=== PATIENT | male | born 1940 | race Caucasian/White ===

== ENCOUNTER 2016-10-04 12:19 | Emergency (ER) | payer MEDICARE, BC ==
[2016-07-25 12:37] VITALS: BMI 22.1
[~2016-10-04 12:19] MED LIST: ADVAIR 250/501 DISK INH; ALENDRONATE SOD70 MG PO; ARAVA10 MG PO; ATROVENT 0.02%2.5 ML UPD; BAYER ASPIRIN325 MG PO; BAYER CHEWABLE81 MG PO; BRILINTA90 MG PO; COUMADIN5 MG PO; FLUTICASONE PRO16 GM NASAL; GLUCOPHAGE500 MG PO; HYDROCODON-ACE1 EAC7 PO; IMODIUM2 MG PO; ISOSORBIDE MONO30 M1 PO; K-DUR20 MEQ PO; LANOXIN125 MCG PO; LEVAQUIN500 MG PO; LIPITOR80 MG PO; LOVENOX60 MG/0.6 SC; METOPROLOL TART25 MG PO; MUCUS RELIEF400 MG PO; NITROSTAT0.4 MG SL; OYSCO 500+D TAB1 TAB PO; PAROXETINE HCL10 MG PO; PEPCID20 MG PO; PLAQUENIL200 MG PO; PREDNISONE10 MG PO; PREDNISONE5 MG PO; SINGULAIR10 MG PO; SPIRIVA18 MCG INH; ULTRAM50 MG PO; VITAMIN D31000 UNIT PO; VITAMIN D3400 UNI1 PO
[2016-10-04 14:35] LABS: BASOPHILS 0.2 % (0.0-2.0); EOSINOPHILS 0 % (0-7); HEMATOCRIT 31.4 % (42.0-54.0); IMMATURE GRANULOCYTES 0.3 % (0-5); LYMPHOCYTES 11.6 % (15-50); MCH 29.5 pg (26.0-34.0); MCHC 31.8 g/dL (31.0-37.0); MCV 92.6 fL (80.0-100.0); MEAN PLATELET VOLUME 10.3 fL (7.4-10.4); NEUTROPHILS 79.9 % (40-80); PLATELET COUNT 188 10x3/uL (130-400); RBC 3.39 10x6/uL (4.20-6.10); WBC 5.8 10x3/uL (4.8-10.8)
[2016-10-04 14:52] LABS: ALBUMIN 2.7 g/dL (3.4-5.0); BILIRUBIN - TOTAL 0.28 mg/dL (0.2-1.3); CARBON DIOXIDE 29.2 mmol/L (21.0-32.0); CREATININE - SERUM 1.2 mg/dL (0.6-1.3); POTASSIUM - SERUM 4.2 mmol/L (3.5-5.1); PROTEIN - SERUM 6.4 g/dL (6.4-8.2)
== END 2016-10-04 16:30 | disposition home or self-care (01) ==
LOC: D.ER 12:19
PROVIDERS: Nurse Practitioner Family
DX: J20.9 Acute bronchitis, unspecified (principal); J06.9 Acute upper respiratory infection, unspecified; J44.1 Chronic obstructive pulmonary disease with (acute) exacerbation; I10 Essential (primary) hypertension; I21.3 ST elevation (STEMI) myocardial infarction of unspecified site; C34.90 Malignant neoplasm of unspecified part of unspecified bronchus or lung; I45.10 Unspecified right bundle-branch block

== ENCOUNTER 2016-10-19 23:19 | Inpatient (IN) | payer MEDICARE, BC ==
[~2016-10-19] VITALS: Ht 182.9 cm; Wt 72.7 kg
--- NOTE | ~2016-10-19 | HEMODYNAMI ---
PATIENT:MADHU ISAAC MEDICAL RECORD: [id number] : 42 LOCATION:[facility] D.2129 ADMISSION DATE: 10/20/16 Generatedon:10/23/20169:22 Patient name: MADHU ISAAC Patient #: [id number] SSN: : 1940 Date of study: 10/23/2016 Page: Of Hemodynamic Procedure Report Patient Data Patient Demographics Procedure consent was obtained First Name: MADHU Gender: Male Last Name: PONCHO : 1940 Middle Initial: ELFEGO Age: 76 year(s) Patient #: [id number] Race: Unknown Additional ID: [id number] Contact details Address: [address] [place] [address] [facility] State: [place] City: [place] Zip code: [address] Admission Admission Data Admission Date: 10/20/2016 Admission Time: 2:14 Room #: D.2129 Procedure Procedure Types Cath Procedure Peripheral Cath Diagnostic Procedure Miscellaneous Procedure Description Procedure Date Procedure Date: 10/23/2016 Procedure Start Time: 8:55 Procedure Staff Name Function Elijah Monzon MD Performing Physician Tamika Buckley RT Scrub Zaina Barfield RN Nurse Leopoldo Herrera RT Monitor Procedure Data Cath Procedure Fluoroscopy Diagnostic fluoroscopy Total fluoroscopy Time: 1.4 time: 1.4 min min Diagnostic fluoroscopy Total fluoroscopy dose: 63 dose: 63 mGy mGy Contrast Material Contrast Material Type Amount (ml) Isovue 300 20 Procedure Medications Medication Administration Route Dosage Fentanyl I.V. 50 mcg Versed I.V. 1 mg Hemodynamics Rest Heart Rate: 38 (bpm) Snapshots Pre Cath Intra NCS Post Cath Vital Signs Time Heart Resp SPO2 NIBP (mmHg) Rhythm Pain Sedation Rate (ipm) (%) Status Level (bpm) 8:42:43 81 23 95 178/99(137) NSR 0 (11) 10(A) , No pain 8:47:07 75 17 94 154/85(127) NSR 0 (11) 10(A) , No pain 8:51:27 71 18 93 155/78(133) NSR 0 (11) 10(A) , No pain 8:55:47 72 12 96 153/82(122) NSR 0 (11) 10(A) , No pain 9:00:07 82 10 94 159/78(132) NSR 0 (11) 10(A) , No pain 9:04:29 75 12 95 153/77(125) NSR 0 (11) 9(A) , No pain 9:08:50 85 16 94 145/74(125) NSR 0 (11) 9(A) , No pain 9:13:06 79 21 98 153/80(127) NSR 0 (11) 10(A) , No pain 9:17:20 85 26 96 139/95(115) NSR 0 (11) 10(A) , No pain 9:21:19 96 No Cuff NSR 0 (11) 10(A) , No pain Medications Time Medication Route Dose Verified Delivered Reason Notes Effectivenes s by by 8:58:20 Fentanyl I.V. 50 Zaina Zaina for mcg Carolyne Carolyne sedation RN RN 8:58:41 Versed I.V. 1 mg Zaina Zaina for Carolyne Carolyne sedation RN survey workers supervisor Log Time Note 8:31:48 Leopoldo Herrera RT (R) (CV) sent for patient. Start room use. 8:31:57 Time tracking: Regular hours 8:32:05 Plan of Care:Hemodynamics will remain stable., Cardiac rhythm will remain stable., Comfort level will be maintained., Respiratory function will remain adequate., Patient/ family verbilizes understanding of procedure., Procedure tolerated without complication., Recovers from procedure without complications.. 8:32:11 Patient received from Combined [employer]ort II to IR Alert and oriented. Tansferred to table in Supine position. 8:32:12 Correct patient and procedure confirmed by team. 8:32:14 Signed procedure consent form obtained from patient. 8:32:14 ECG and BP/O2 sat monitors applied to patient. 8:32:15 Full Disclosure recording started 8:32:16 8:32:21 H&P Date Dictated: 10/23/2016 Within 30 days and on chart.. 8:32:23 Pre-procedure instructions explained to patient. 8:32:24 Pre-op teaching completed and patient verbalized understanding. 8:32:26 Family in waiting room. 8:32:28 Patient NPO since Midnight. 8:32:32 Is the patient allergic to Iodine/contrast media? No. 8:32:35 Is patient on blood thinner?No 8:32:36 Patient diabetic? Yes. 8:32:38 If diabetic: On Metformin? Yes 8:32:43 If on Metformin: Last Dose? 10/22/2016 8:32:45 8:32:46 ----Pre-sedation anethsthesia assessment.---- 8:32:50 Previous problem with sedation/anesthesia? No ? 8:32:51 Snore? Yes 8:32:53 Sleep apnea? No 8:32:55 Deviated septum? No 8:32:57 Opens mouth fully? Yes 8:32:58 Sticks out tongue? Yes 8:33:04 Airway obstruction? No ? 8:33:22 Dentures? Yes ? 8:33:29 Patient pain scale 0/10 no pain. 8:41:06 IV patent on arrival in left forearm with 0.9% NaCl at [facility]. 8:41:07 Sharps counted by scrub and verified by R.N. 8:41:08 Alarms reviewed by R. N. 8:41:11 Right groin area was prepped with chlora-prep and draped in sterile fashion 8:41:16 Use device set IR Diagnostic 8:41:18 Sterile Angiographic Pack opened to sterile field. 8:41:19 Bag Decanter opened to sterile field. 8:41:20 Acist Manifold opened to sterile field. 8:41:21 Acist Syringe opened to sterile field. 8:41:21 Acist Hand Control opened to sterile field. 8:41:33 Vital chart was started 8:41:34 Baseline sample Acquired. 8:41:37 Rhythm: sinus rhythm 8:55:06 Physician arrived 8:55:06 --------ALL STOP TIME OUT------ 8:55:07 Final Timeout: patient, procedure, and site verified with staff and physician. All members of the team are in agreement. 8:55:09 Right groin site verified by team. 8:55:14 Physical assessment completed. ASA score P 3 - A patient with severe systemic disease as per Elijah Monzon MD. 8:55:17 Sedation plan: IV Moderate Sedation Versed, Fentanyl 8:55:36 Procedure started. 8:55:41 Local anesthetic to right femoral vein with Lidocaine 1% by Elijah Monzon MD.INITIAL ACCESS ONLY 8:55:47 Cook BENTSON 145cm guide wire opened to sterile field. 8:55:48 Micropuncture VSI 4FR kit opened to sterile field. 8:55:49 TUBING, CONTRAST INJCTN HI PRES opened to sterile field. 8:58:20 Fentanyl 50 mcg I.V. was administered by Zaina Barfield RN; for sedation; 8:58:41 Versed 1 mg I.V. was administered by Zaina Barfield RN; for sedation; 9:05:35 Bard TRINO Vena Cava Filter opened to sterile field. 9:05:51 Trino Femoral IVC filter was placed below renal veins. 9:08:45 Procedure ended.(Physican Out) 9:10:19 Fluoroscopy time 01.40 minutes. 9:10:26 Flurop Dose total: 63 9:10:26 Fluoroscopy dose: 63 mGy 9:10:33 Contrast amount:Isovue 300 20ml. 9:10:37 Sharps counted by scrub and verified by R.N. 9:10:41 Insertion/operative site no bleeding no hematoma. 9:10:46 Post-op/insertion site Right Femoral vein dressed using a 4 x 4 and Tegaderm. 9:10:50 Post right femoral vein:stable 9:10:56 Post-procedure physical assessment completed. ASA score P 3 - A patient with severe systemic disease as per Elijah Monzon MD. 9:11:00 Post procedure rhythm: sinus rhythm 9:11:02 Post procedure instruction explained to patient.Patient verbalizes understanding. 9:11:03 Procedure and supply charges have been captured, reviewed, submitted and are correct. 9:20:46 Report given to Med II. 9:20:50 Patient transfered to Med II with Bed. 9:22:04 Vital chart was stopped Device Usage Item Name Manufacture Quantity Catalog Hospital Part Current Minima l Lot# / Number Charge Number Stock Stock Serial# Code Sterile Cardinal 1 [id number] 5 Angiographic Health Pack Bag Decanter Microtek 1 [id number] [id number] [id number] 5 Medical Inc. Acist Acist 1 38157 373149 473586 [id number] 5 Manifold Medical Systems Inc Acist Syringe Acist 1 11073 041693 012676 530484 20 Medical Systems Inc Acist Hand Acist 1 87214 024745 595963 751920 5 Control Medical Systems Inc Cook [facility] Cook Medical 1 [id number] 5 [id number] 145cm guide wire Micropuncture VSI VASCULAR 1 [id number] 964681 244978 5 VSI 4FR kit SOLUTIONS TUBING, Merit 1 [id number] 083952 221118 251751 5 CONTRAST Medical INJCTN HI PRES Bard TRINO Bard 1 [id number] [id number] 305617 630791 5 [id number] Vena Cava Filter Signature Audit [place] Stage Time Signature Unsigned Intra-Procedure 10/23/2016 Leopoldo 9:22:01 AM Sh[place] RT (R) (CV) Signatures Monitor : Leopoldo Signature : Javier RT Date : Time : [facility] [address] [place] [address]
[2016-10-20 01:21] LABS: BASOPHILS 0.1 % (0.0-2.0); EOSINOPHILS 0.1 % (0-7); HEMOGLOBIN 11.1 g/dL (13.5-17.5); IMMATURE GRANULOCYTES 0.4 % (0-5); MCH 30.2 pg (26.0-34.0); MCHC 31.7 g/dL (31.0-37.0); MCV 95.1 fL (80.0-100.0); MONOCYTES 5.5 % (2-11); NEUTROPHILS 80.9 % (40-80); PLATELET COUNT 198 10x3/uL (130-400); RBC 3.68 10x6/uL (4.20-6.10); RDW 18.3 % (11.5-14.5); WBC 19.6 10x3/uL (4.8-10.8)
[2016-10-20 01:39] LABS: ALBUMIN 2.7 g/dL (3.4-5.0); ANION GAP 10.7 mmol/L (8-16); BILIRUBIN - TOTAL 0.98 mg/dL (0.2-1.3); CALCIUM 8.4 mg/dL (8.5-10.1); CARBON DIOXIDE 29.4 mmol/L (21.0-32.0); CREATININE - SERUM 1.1 mg/dL (0.6-1.3); POTASSIUM - SERUM 4.1 mmol/L (3.5-5.1); PROTEIN - SERUM 5.9 g/dL (6.4-8.2)
[2016-10-20 02:52] LABS: TROPONIN-I 0.101 ng/mL (0.000-0.060)
[2016-10-20 03:08] LABS: CKMB 0.7 U/L (0.0-3.6); CREATINE KINASE 37 UL (21-232)
[2016-10-20] MEDS ORDERED: CHILDREN'S ASPI81 MG PO (03:54)
[2016-10-20] MEDS ORDERED: PREDNISONE20 MG PO (03:55)
[2016-10-20 04:01] LABS: INR 1.04 (0.85-1.17); PROTIME 13.5 SECONDS (11.6-15.0)
--- NOTE | 2016-10-20 04:55 | NUR ---
INITIATED PTS HEPARIN DRIP ORDERED. STARTED AT INITIAL RATE OF 13ML/HR AND WILL ADJUST PER PTT/INR LAB PER PROTOCOL. INFUSING VIA R.AC PIV WITH DRSG CDI AND SWAB CAPS IN USE. EMPTIED PTS URINAL OF 300ML CLEAR YELLOW URINE. PT RESTING COMFORTABLY AND DENIES ANY FURTHER NEEDS AT THIS TIME. CL IN REACH, BED IN LOWEST, SIDE RAILS X2. WILL CPOC.
[2016-10-20 05:53] VITALS: BP 109/54
--- NOTE | 2016-10-20 07:34 | NUR ---
RECEIVED PT REPORT. WILL CONTINUE PLAN OF CARE. NO OTHER NEEDS AT THIS TIME. WILL CONTINUE TO MONITOR.
[2016-10-20 08:30] LABS: BASOPHILS 0.1 % (0.0-2.0); EOSINOPHILS 0 % (0-7); HEMOGLOBIN 10.2 g/dL (13.5-17.5); IMMATURE GRANULOCYTES 0.4 % (0-5); LYMPHOCYTES 12.8 % (15-50); MCH 30.1 pg (26.0-34.0); MCHC 31.9 g/dL (31.0-37.0); MCV 94.4 fL (80.0-100.0); MEAN PLATELET VOLUME 9.8 fL (7.4-10.4); MONOCYTES 4.2 % (2-11); NEUTROPHILS 82.5 % (40-80); PLATELET COUNT 176 10x3/uL (130-400); RBC 3.39 10x6/uL (4.20-6.10); RDW 18.4 % (11.5-14.5)
[2016-10-20 09:13] LABS: ALBUMIN 2.4 g/dL (3.4-5.0); ALKALINE PHOSPHATASE 57 U/L (46-116); ALT (SGPT) 18 U/L (10-68); BILIRUBIN - TOTAL 0.86 mg/dL (0.2-1.3); CALCIUM 8.5 mg/dL (8.5-10.1); CARBON DIOXIDE 31.2 mmol/L (21.0-32.0); CHLORIDE - SERUM 99 mmol/L (98-107); CKMB 1.1 U/L (0.0-3.6); CREATINE KINASE 81 UL (21-232); CREATININE - SERUM 1.1 mg/dL (0.6-1.3); POTASSIUM - SERUM 3.6 mmol/L (3.5-5.1); PROTEIN - SERUM 5.6 g/dL (6.4-8.2); SODIUM 136 mmol/L (136-145); UREA NITROGEN 16 mg/dL (7-18); eGFR NON AFRICAN AMERICAN 69 mL/min (90-120)
[2016-10-20 09:19] VITALS: BP 114/48
[2016-10-20 09:20] LABS: CALC OSMOLALITY 277 mosm/kg (275-300); GLUCOSE 183 mg/dL (74-106); TROPONIN-I 0.077 ng/mL (0.000-0.060)
[2016-10-20 12:21] VITALS: BP 119/60
[2016-10-20 14:48] LABS: CREATINE KINASE 91 UL (21-232); TROPONIN-I 0.073 ng/mL (0.000-0.060)
[2016-10-20 15:49] VITALS: BP 124/75
--- NOTE | 2016-10-20 16:24 | HP ---
PATIENT: MADHU ISAAC MEDICAL RECORD: [id number] ACCOUNT: [id number] LOCATION:[address] : 42 ADMISSION DATE: 10/20/16 HISTORY AND PHYSICAL EXAMINATION HISTORY OF PRESENT ILLNESS: Mr. Isaac is a pleasant 76-year-old white male, who has had a week or so long history of progressive shortness of breath, cough and wheezing, was seen in the Emergency Room and office and treated for acute bronchitis, actually improved. This Saturday, he began experiencing increasing shortness of breath, actually had a fall and bumped his head, presents to the ER where he was found to have a pulmonary embolism. Radiologist read this out as a saddle embolism, but actually the embolism is on the left pulmonary artery between the upper and lower segments and not the branch of the right and left pulmonary arteries. He has a known history of COPD and was recently diagnosed with lung cancer, also has a history of prostate cancer. He is admitted at this time and has been started on a heparin drip. Hemodynamically, he is stable at this time. Pulmonary has been consulted and they are familiar with the patient. 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 Harding. PAST SURGICAL HISTORY: Include cataract surgery, PTCA, hernia repair, TURP and lung resection. ALLERGIES: None known. HOME MEDICATIONS: Include Atrovent inhaler, has had some tachycardia with albuterol, ipratropium 1 puff a day, digoxin 0.125 a day, paroxetine 10 daily, baby aspirin a day, calcium with vitamin D, Advair Diskus 250/50 a puff twice a day, guaifenesin, Singulair 10 mg at bedtime, Flonase nasal spray 2 sprays each nostril daily, Imodium p.r.n., metformin 500 b.i.d., prednisone 20 mg a day, cholecalciferol 400 international units, alendronate 70 mg a day and Arava 10 mg daily. FAMILY HISTORY: Noncontributory. SOCIAL HISTORY: The patient is , does not drink. REVIEW OF SYSTEMS: No fever. He has had recent increasing shortness of breath and bronchitic cough, swelling of his left lower leg, which just started a few days ago. No nausea or vomiting. PHYSICAL EXAMINATION: HEENT: Head is normocephalic. He has got some abrasions and contusions on the right side of his face. Pupils are equal, round and reactive to light. Tongue is in the midline. NECK: Soft and supple. HEART: Regular. LUNGS: With bilateral rhonchi. ABDOMEN: Soft. Right lower leg without edema. Left leg does have edema. NEUROLOGIC: Without any gross focal deficits. HISTORY AND PHYSICAL [id number] MADHU ISAAC IMPRESSION: Pulmonary embolism, suspect deep venous thrombosis of the left lower leg, head contusion, lung cancer, history of prostate cancer, chronic obstructive pulmonary disease, coronary artery disease and diabetes. PLAN: Admit, heparin drip, check venous Doppler, will probably need a filter, CT head due to contusion and abrasion there, check echo, Rx COPD. See orders for rest of the plan. TRANSINT:[id number] Voice Confirmation ID: [id number] DOCUMENT ID: [id number] DAVID WARD DO at 1624 CC: [id number] DICTATION DATE: 10/20/16 1054 DIRECTOR OF INSTITUTIONAL GIVING: 10/20/16 1227 ADM IN [place] [id number] [place] [id number]
[2016-10-20 16:53] VITALS: BP 124/75; BMI 21.7
--- NOTE | 2016-10-20 16:56 | NUR ---
PT IS ALERT. ASSESSMENT DONE PER FLOWSHEET. NOOTHER NEEDS AT THIS TIME. WILL CONTINUE TO MONITOR.
[2016-10-20 21:37] VITALS: BP 94/51
[2016-10-21 00:30] VITALS: BP 91/60
--- NOTE | 2016-10-21 03:45 | NUR ---
ASSESSMENT COMPLETE, 09-15 OX, IV-R.UPPER LER-PMDPAF-45, RAC-SL, ON FALL RISK, FAMILY AT BEDSIDE, BED IS LOW, SRX2, CALL LIGHT IN REACH, WILL CONTINUE TO MONITOR
[2016-10-21 04:30] VITALS: BP 119/74
[2016-10-21 06:27] LABS: BASOPHILS 0.1 % (0.0-2.0); EOSINOPHILS 0 % (0-7); HEMATOCRIT 33.1 % (42.0-54.0); HEMOGLOBIN 10.6 g/dL (13.5-17.5); IMMATURE GRANULOCYTES 0.3 % (0-5); LYMPHOCYTES 5.3 % (15-50); MCH 30.1 pg (26.0-34.0); MEAN PLATELET VOLUME 9.8 fL (7.4-10.4); MONOCYTES 2.9 % (2-11); NEUTROPHILS 91.4 % (40-80); PLATELET COUNT 194 10x3/uL (130-400); RBC 3.52 10x6/uL (4.20-6.10); RDW 18.1 % (11.5-14.5); WBC 14.4 10x3/uL (4.8-10.8)
[2016-10-21 06:50] LABS: CALC OSMOLALITY 289 mosm/kg (275-300); CALCIUM 8.8 mg/dL (8.5-10.1); CARBON DIOXIDE 33.3 mmol/L (21.0-32.0); CHLORIDE - SERUM 102 mmol/L (98-107); GLUCOSE 265 mg/dL (74-106); MAGNESIUM - SERUM 1.9 mg/dL (1.8-2.4); POTASSIUM - SERUM 4.6 mmol/L (3.5-5.1); SODIUM 139 mmol/L (136-145); UREA NITROGEN 20 mg/dL (7-18); eGFR NON AFRICAN AMERICAN 77 mL/min (90-120)
--- NOTE | 2016-10-21 08:00 | NUR ---
INTRODUCED MYSELF TO PT PRIMARY RN FOR TODAYS SHIFT. PT IS ALERT AND ORIENTED SITTING UP IN BED RESTING QUIETLY WITH AT BEDSIDE. SHIFT ASSESSMENT COMPLETED. PT HAS BRUISING NOTED TO R.SIDE OF FACE FROM A FALL. PT HAS A R.AC PIV WITH NS KVO TO INTERMITT. ANBX, SITE PATENT WITH DRSG CDI AND SWAB CAPS IN USE. PT ALSO HAS A R.UPPER ARM PIV WITH DRSG CDI AND SWAB CAPS IN USE ITS PATENT WELL WITH A HEPARIN DRIP INFUSING @14ML/HR. PTT CHECKED AND PER PROTOCOL NO CHANGE NEEDED IN RATE/DOSE, WILL ORDER REPEAT LAB FOR IN THE AM HEPARIN DRIP PROTOCOL. PT HAS A L.CHEST IP THAT IS NOT ACCESSED, SKIN OVER IT INTACT WNL. PT RR ARE NONLABORED WITH OXYMIZER @11L IN PLACE. LUNGS DIMINISHED WITH WHEEZES IN UPPER LOBES. PT HAS NO OTHER NOTED SKIN BREAKDOWN. PT IS CURRENTLY NPO AND INQUIRING ABOUT HIS DIET, WILL NOTIFY PRIMARY DOCTOR AND FIND OUT. PT DENIES ANY CURRENT PAIN OR NEEDS AT THIS TIME. CL IN REACH, BED IN LOWEST, SIDE RAILS X2. WILL CPOC.
[2016-10-21 08:59] VITALS: BP 119/64
--- NOTE | 2016-10-21 11:30 | NUR ---
PT FINALLY ABLE TO EAT, SWALLOW EVAL PASSED AND REGULAR FOOD REQUIRED. ORDERED PT A DIABETIC DIET. PT VOICED THANKS AND IS RESTING COMFORTABLY WITH AT BEDSIDE. CL IN REACH, BED IN LOWEST, SIDE RAILS X2. WILL CPOC.
[2016-10-21 12:14] VITALS: BP 119/64
--- NOTE | 2016-10-21 15:10 | NUR ---
ASSISTED PT UP TO BR. PT VOIDED LARGE AMOUNT CLEAR YELLOW URINE. PTS OXYMIZER DOWN TO 8L AND RR NONLABORED. O2 SAT 93% PT BACK IN BED AND SITTING UP STATES HE IS COMFORTABLE. R.AC SITE LEAKING, CHANGED TEGADERM IV STILL PATENT NEW DRSG CDI AND SWAB CAPS IN USE. PT DENIES ANY FURTHER NEEDS AT THIS TIME. CL IN REACH, BED IN LOWEST, SIDE RAILS X2. WILL CPOC.
[2016-10-21 16:13] VITALS: BP 107/62
[2016-10-21 21:37] VITALS: BP 136/71
[2016-10-22 00:30] VITALS: BP 132/86
[2016-10-22 04:45] VITALS: BP 120/86
--- NOTE | 2016-10-22 05:27 | NUR ---
IN RESTROOM, WITH OXYMIZER OFF. CHECKED O2 SAT 86 ON ROOM AIR. 98-150 HR. PLACED BACK ON OXYMIZER @ 6LPM BACK TO 98%. WILL CONTINUE TO MONITOR. CALL LIGHT IN REACH.
[2016-10-22 06:32] LABS: HEMOGLOBIN 9.9 g/dL (13.5-17.5); MCH 29.9 pg (26.0-34.0); MCHC 31.9 g/dL (31.0-37.0); MCV 93.7 fL (80.0-100.0); MEAN PLATELET VOLUME 10.5 fL (7.4-10.4); RBC 3.31 10x6/uL (4.20-6.10); RDW 17.7 % (11.5-14.5); WBC 13.2 10x3/uL (4.8-10.8)
[2016-10-22 07:59] VITALS: BP 118/72
[2016-10-22 11:56] VITALS: BP 127/70
[2016-10-22 13:09] VITALS: Ht 182.9 cm; Wt 72.7 kg
[2016-10-22 16:27] VITALS: BP 112/58
--- NOTE | 2016-10-22 18:47 | NUR ---
MEDS WERE GIVEN BUT NOT SAVED AND RECONCILED. HAS BEEN RESTING ALL DAY.
[2016-10-22 19:11] LABS: INR 0.99 (0.85-1.17)
--- NOTE | 2016-10-22 20:15 | NUR ---
ASSESSMENT DONE. PT A/O. LAYING IN BED WATCHING TV. NO DISTRESS NOTED. SPOUSE IN ROOM. PT DENIES NEEDS AT THIS TIME. PT REMAINS ON HEP GTT. WAS TOLD BY JOSE DIAZ IN REPORT THAT IR NURSE IS AWARE OF PT BEING ON HEP GTT. PT IS TO HAVE IVC FILTER PLACE TOMORROW. NO ORDERS WERE REC'D TO STOP HEP GTT. CALL LIGHT WITH IN REACH. WILL CONT. TO MONITOR.
[2016-10-22 21:40] VITALS: BP 132/81
--- NOTE | 2016-10-22 21:45 | NUR ---
PT'S 2ND IV INFILTRATED. NURSE D/C IV WITH TIP INTACT. STARTED NEW IV, 20G TO PT'S RT WRIST X1 ATTEMPT. PT TOLERATED WELL. IV ANTIBIOTICS HOOKED TO NEW IV.
[2016-10-23] VITALS (12 sets, daily range): BP systolic 136–177; BP diastolic 58–85
--- NOTE | 2016-10-23 02:34 | NUR ---
PT SLEEPIING. APPEARS COMFORTABLE. NO DISTRESS NOTED. SPOUSE AT BEDSIDE. CALL LIGHT WITH IN REACH. WILL CONT. TO MONITOR.
--- NOTE | 2016-10-23 03:31 | NUR ---
PT'S YELLED FOR NURSE TO COME INTO PT'S ROOM. PT WAS SITTING ON SIDE OF BED. HE WAS NAKED, AND HAD PULLED IV TO RT WRIST OUT. PT HAD URINATED IN THE TRASH CAN AND ON THE FLOOR. PT DISORIENTED TO PLACE AND TIME. NOT WEARING OXYGEN. NURSE PLACED GAUZE ON BLEEDING IV SITE, AND REPLACED PT'S O2. PT SLOWLY BECOMING MORE ORIENTED. LINEN'S CHANGED. PT WASHED WITH SOAP AND WATER. FLOOR CLEANED, AND TRASH EMPTIED. PT'S SPOUSE REPORTS THAT PT "JUST SAT UP AND STARTED PULLING AT EVERYTHING AND THEN STOOD UP AND URINATED IN TRASH CAN." SHE STATES " HE HAD A WILD LOOK ABOUT HIM, I WAS ALMOST AFRAID HE WAS GOING TO HIT ME." PT NOW STATES HE IS EMBARRASSED, AND IS APOLOGIZING OVER AND OVER FOR "MAKING SUCH A MESS." O2 SAT 98% ON 4L OXYMIZER. IV PLACED IN PT'S LEFT FA WITH 20G X1 ATTEMPT. PT IS ORIENTED X2. HE DID NOT REMEMBER BEING IN THE HOSPITAL UNTIL THIS NURSE JUST REMINDED HIM. PT IS TEARFUL, AND STATES " I JUST DON'T KNOW WHAT MADE ME DO THAT." PT REMAINS NPO FOR IVC FILTER PLACEMENT THIS AM. DENIES NEEDS AT THIS TIME. CALL LIGHT WITH IN REACH. WILL CONT. TO MONITOR.
[2016-10-23 06:04] LABS: BASOPHILS 0 % (0.0-2.0); EOSINOPHILS 0 % (0-7); HEMATOCRIT 28.3 % (42.0-54.0); HEMOGLOBIN 9.3 g/dL (13.5-17.5); IMMATURE GRANULOCYTES 0.4 % (0-5); LYMPHOCYTES 7.1 % (15-50); MCH 31.1 pg (26.0-34.0); MCHC 32.9 g/dL (31.0-37.0); MCV 94.6 fL (80.0-100.0); MEAN PLATELET VOLUME 10.3 fL (7.4-10.4); MONOCYTES 3.6 % (2-11); NEUTROPHILS 88.9 % (40-80); PLATELET COUNT 183 10x3/uL (130-400); RBC 2.99 10x6/uL (4.20-6.10); RDW 17.3 % (11.5-14.5)
[2016-10-23 06:16] LABS: WBC 7.2 10x3/uL (4.8-10.8)
[2016-10-23 06:18] LABS: CARBON DIOXIDE 29.1 mmol/L (21.0-32.0); CHLORIDE - SERUM 103 mmol/L (98-107); CREATININE - SERUM 0.9 mg/dL (0.6-1.3); POTASSIUM - SERUM 4.4 mmol/L (3.5-5.1); SODIUM 137 mmol/L (136-145); eGFR NON AFRICAN AMERICAN 87 mL/min (90-120)
[2016-10-23 06:24] LABS: CALC OSMOLALITY 296 mosm/kg (275-300); GLUCOSE 399 mg/dL (74-106); UREA NITROGEN 28 mg/dL (7-18)
--- NOTE | 2016-10-23 06:48 | NUR ---
NURSE WENT INTO PT'S ROOM TO ADJUST PT'S HEPARIN GTT PER PROTOCOL. HEPARIN WAS TURNED OFF. NURSE QUESTIONED PT'S TO WHO TURNED OF GTT. SHE REPLIED " WELL, I JUST TURNED IT OFF. THE BAG WAS ALMOST EMPTY." NURSE EDUCATED PT ON IMPORTANCE OF KEEPING GTT GOING, AND ABOUT THE PTT LEVEL. UNDERSTANDING VERBALIZED. PT SLEEPING. RESP EVEN AND UNLABORED. APPEARS COMFORTABLE. NO DISTRESS NOTED. CALL LIGHT WITHIN REACH.
--- NOTE | 2016-10-23 07:05 | NUR ---
RECEIVED REPORT. ASSUMED CARE OF PATIENT. CALL LIGHT WITHIN REACH. RESTING WITH EYES CLOSED. RESP EVEN AND UNLABORED. EASILY AROUSED. DENIES NEEDS. NPO FOR PROCEDURE THIS AM. SPOUSE AT BEDSIDE. DENIES NEEDS. CONTINUES ON HEPARIN GTT ORDERED PER PROTOCOL. EDEMA NOTED TO BILATERAL LOWER EXT, GREATER ON LEFT LOWER EXTREMITY. NO DISTRESS.
--- NOTE | 2016-10-23 08:09 | NUR ---
HEPARIN GTT STOPPED AT THIS TIME PER LIANE IN IR. IR WILL BE HERE FOR PATIENT ABOUT 830 OR 900. PATIENT AND INFORMED OF TIME PATIENT WILL BE GOING FOR IVC FILTER PLACEMENT.
--- NOTE | 2016-10-23 08:35 | NUR ---
PATIENT LEFT UNIT VIA BED IN NO DISTRESS FOR IVC FILTER PLACEMENT.
--- NOTE | 2016-10-23 09:58 | NUR ---
0938 RECEIVED PATIENT TO ROOM FROM IR. TEGADERM TO RIGHT DRESSING. NO S/S HEMATOMA. PERIPHERAL PULSES PATENT. PATIENT CONNECTED TO IV HEPARIN AT THIS TIME ORDERED. CALL LIGH PLACED WIHTIN REACH. PATIENT ALERT/ORIENTED, ICE WATER PROVIDED UPON REQUEST. PATIENT MADE AWARE HE WILL BE ABLE TO GET UP AT 1045.NO DISTRESS.
--- NOTE | 2016-10-23 15:00 | EC ---
PATIENT:MADHU ISAAC DATE OF SERVICE: 10/20/16 SEX: M MEDICAL RECORD: [id number] DATE OF : [birth year] LOCATION:D.M2 D.212 AGE OF PATIENT: 76 ADMISSION DATE: 10/20/16 REFERRING PHYSICIAN: INTERPRETING PHYSICIAN: JUNE PAULINO MD ECHOCARDIOGRAM REPORT ECHO CHARGES 4 ECHO COMPLETE CLINICAL DIAGNOSIS: PE HX CAD/STENTS ECHOCARDIOGRAPHIC MEASUREMENTS (adult normal given) AC root (d.<3.7cm) 3.7 LV Septum d (<1.2 cm> 1.4 Valve Excursion 1.4 LV Septum (systole) 1.5 Left Atria (s.<4.0cm> 4.0 LVPW d(<1.2cm) 1.6 RV (d.<2.3cm) 3.2 LVPW (sytole) 1.7 LV diastole(<5.6CM) 4.8 MV E-F(>70mm/sec) LV systole 3.7 LVOT Diameter 1.6 MV exc.(>10mm) Est.ejection fraction (50-75%) Pericardial Effusion N DOPPLER: LVIT A 118 E 61.0 LA RVSP 40 LVOT 88 AOP1/2T Asc. Ao 121 RVOT RA PA AV Gradient Peak 5.90 AV Mean 3.09 AV Area 1.7 MV Gradient Peak 8.22 MV Mean 3.40 MV Area COMMENTS: Environment Friendly Landscape Designer: Eric THIBODEAUX Manager Physical:Cindy Nur TAPE# PACS DATE OF SERVICE: 10/20/2016 Adequate 2D echo, color flow and spectral Doppler, and M-mode. Mild LVH. LV internal dimensions are normal. LV function appears to be lower limits of normal, estimated EF 45% to 50%. Aortic valve is tricuspid. No stenosis by Doppler interrogation. The left atrium is upper limits of normal at 4.0 cm. Mitral valve shows no prolapse. Trace MR. Right-sided chamber is grossly normal. Trace TR. TRANSINT:[id number] Voice Confirmation ID: [id number] DOCUMENT ID: [id number] ECHOCARDIOGRAM REPORT [id number] MADHU ISAAC JUNE PAULINO MD at 1500 CC: [id number] DICTATION DATE: 10/20/16 1524 EMR TRAINER: 10/21/16 0931 ADM IN [facility] [address] [place] [id number]
--- NOTE | 2016-10-23 15:28 | NUR ---
20 GAUGE IV PLACED X 1 STICK TO RIGHT FOREARM. GOOD BLOOD RETURN, EASY FLUSH. PATIENT TOLERATED IV PLACEMENT WELL. TAPED, DATED AND SECURED. 22 GAUGE IV REMOVED FROM RIGHT UPPER ARM DUE TO INFILTRATION. PATIENT ACCIDENTLY PULLED IV TUBING AND DISLODGED IV. CATHETER TIP INTACT. NO BLEEDING FROM SITE. 2X2 GAUZE APPLIED AND SECURED WITH TAPE. NO DISTRESS.
--- NOTE | 2016-10-23 17:19 | NUR ---
FSBS 389. 10 UNITS HUMULIN R ADMINISTERED PER SLIDING SCALE. NO DISTRESS.
--- NOTE | 2016-10-23 20:05 | NUR ---
ASSESSMENT DONE. PT SITTING UP IN BED WATCHING TV, AND READING NEWSPAPER. A/O. DRESSING TO RT GROIN CLEAN, DRY, AND INTACT. NO S/S OF BLEEDING OR HEMATOMA. RT PEDAL PULSE PALPABLE. PT DENIES NEEDS AT THIS TIME. CALL LIGHT WITH IN REACH. WILL CONT. TO MONITOR.
[2016-10-24 00:49] LABS: HEMATOCRIT 26.9 % (42.0-54.0); HEMOGLOBIN 8.7 g/dL (13.5-17.5); MCH 30.3 pg (26.0-34.0); MCHC 32.3 g/dL (31.0-37.0); MCV 93.7 fL (80.0-100.0); MEAN PLATELET VOLUME 9.4 fL (7.4-10.4); RBC 2.87 10x6/uL (4.20-6.10); RDW 16.9 % (11.5-14.5); WBC 6.4 10x3/uL (4.8-10.8)
--- NOTE | 2016-10-24 01:12 | NUR ---
PT SLEEPING, APPEARS COMFORTABLE. NO DISTRESS NOTED. SPOUSE AT BEDSIDE. CALL LIGHT WITH IN REACH. WILL CONT. TO MONITOR.
--- NOTE | 2016-10-24 03:46 | NUR ---
PT SLEEPING. HOB ELEVATED. EYES CLOSED. RESP EVEN AND UNLABORED. APPEARS COMFORTABLE. SPOUSE AT BEDSIDE. CALL LIGHT WITH INREACH. WILL CONT. TO MONITOR.
[2016-10-24 04:00] VITALS: BP 159/83
[2016-10-24 06:59] LABS: BASOPHILS 0 % (0.0-2.0); EOSINOPHILS 0 % (0-7); HEMATOCRIT 28.2 % (42.0-54.0); HEMOGLOBIN 8.9 g/dL (13.5-17.5); IMMATURE GRANULOCYTES 0.5 % (0-5); LYMPHOCYTES 11.1 % (15-50); MCH 29.7 pg (26.0-34.0); MCHC 31.6 g/dL (31.0-37.0); MEAN PLATELET VOLUME 10.1 fL (7.4-10.4); MONOCYTES 7.9 % (2-11); NEUTROPHILS 80.5 % (40-80); PLATELET COUNT 180 10x3/uL (130-400); RDW 16.9 % (11.5-14.5); WBC 5.9 10x3/uL (4.8-10.8)
[2016-10-24 07:15] LABS: CALC OSMOLALITY 290 mosm/kg (275-300); CALCIUM 8.4 mg/dL (8.5-10.1); CARBON DIOXIDE 30.5 mmol/L (21.0-32.0); CHLORIDE - SERUM 104 mmol/L (98-107); CREATININE - SERUM 0.8 mg/dL (0.6-1.3); POTASSIUM - SERUM 4.2 mmol/L (3.5-5.1); SODIUM 139 mmol/L (136-145); UREA NITROGEN 23 mg/dL (7-18); eGFR NON AFRICAN AMERICAN > 90 mL/min (90-120)
[2016-10-24 07:17] LABS: GLUCOSE 256 mg/dL (74-106)
[2016-10-24 08:00] VITALS: BP 140/42
--- NOTE | 2016-10-24 08:48 | NUR ---
PT SITTING UP IN BED AT BEDSIDE DENEIS NEEDS WILL CONT TO MONITOR.
[2016-10-24 12:00] VITALS: BP 163/75
--- NOTE | 2016-10-24 12:21 | NUR ---
PT SITTING UP IN BED EATING LUNCH. AT BEDSIDE WILL CONT TO MONITOR
--- NOTE | 2016-10-24 14:29 | NUR ---
Nutrition follow-up: Diet: ADA consistent CHO Has been NPO for procedure PO intake 100% of most meals +BM Wt: 160# FSBS > 200 RDN following.
[2016-10-24] MEDS ORDERED: FLORAJEN3 CAPS460 MG PO (15:15)
[2016-10-24] MEDS ORDERED: LEVAQUIN500 MG PO (15:19)
[2016-10-24] MEDS ORDERED: BENZONATATE200 MG PO (15:22)
[2016-10-24] MEDS ORDERED: XARELTO15 MG PO (15:22)
[2016-10-24] MEDS ORDERED: PREDNISONE10 MG PO (15:33)
[2016-10-24 17:52] VITALS: BP 148/80
--- NOTE | 2016-10-24 18:13 | NUR ---
PT PIV IN LEFT FA INFILTRATED. DC WITH CATH INTACT.
--- NOTE | 2016-10-24 18:18 | NUR ---
PT SITTING UP IN BED AT BEDSIDE DENIES NEEDS
[2016-10-24 21:08] VITALS: BP 164/80
[2016-10-25 01:33] VITALS: BP 149/75
[2016-10-25 05:52] LABS: BASOPHILS 0 % (0.0-2.0); EOSINOPHILS 0 % (0-7); HEMATOCRIT 29.1 % (42.0-54.0); HEMOGLOBIN 9.3 g/dL (13.5-17.5); IMMATURE GRANULOCYTES 0.4 % (0-5); LYMPHOCYTES 12.1 % (15-50); MCH 29.8 pg (26.0-34.0); MCV 93.3 fL (80.0-100.0); MONOCYTES 10.7 % (2-11); NEUTROPHILS 76.8 % (40-80); PLATELET COUNT 205 10x3/uL (130-400); RBC 3.12 10x6/uL (4.20-6.10); RDW 16.8 % (11.5-14.5)
[2016-10-25 06:04] VITALS: BP 164/65
[2016-10-25 06:07] LABS: CALC OSMOLALITY 283 mosm/kg (275-300); CALCIUM 8.9 mg/dL (8.5-10.1); CARBON DIOXIDE 31.8 mmol/L (21.0-32.0); CHLORIDE - SERUM 105 mmol/L (98-107); CREATININE - SERUM 0.8 mg/dL (0.6-1.3); POTASSIUM - SERUM 4.1 mmol/L (3.5-5.1); SODIUM 140 mmol/L (136-145); UREA NITROGEN 23 mg/dL (7-18); eGFR NON AFRICAN AMERICAN > 90 mL/min (90-120)
[2016-10-25 06:09] LABS: WBC 7.6 10x3/uL (4.8-10.8)
[2016-10-25 06:17] LABS: GLUCOSE 111 mg/dL (74-106)
[2016-10-25 07:41] VITALS: BP 162/95
--- NOTE | 2016-10-25 10:37 | NUR ---
Patient Name: MADHU ISAAC Admission Status: ER Accout number: [id number] Admission Date: 10-20-2016 : 1940 Admission Diagnosis:SHORTNESS OF BREATH Attending: AMY Current LOS: 5 Anticipated DC Date: 10-25-2016 Planned Disposition: Home Primary Insurance: MEDICARE A & B Discharge Planning Comments: * Is the patient Alert and Oriented? Yes 0 * How many steps to enter\exit or inside your home? 4-5 0 * PCP DR. BULLOCK 0 * Pharmacy [facility] 0 * Preadmission Environment Home with Family 0 * ADLs Independent 0 * Equipment [facility] 0 * Other Equipment [facility] 0 * List name and contact numbers for known caregivers / representatives who currently or will assist patient after discharge: DINORAH ISAAC, 0 * Community resources currently utilized None 0 * Please name any agencies selected above. NONE 0 * Additional services required to return to the preadmission environment? No 0 * Can the patient safely return to the preadmission environment? Yes 0 * Has this patient been hospitalized within the prior 30 days at any hospital? No 0 CM MET WITH PT IN ROOM TO DISCUSS DISCHARGE PLANNING AND NEEDS. PT REPORTS LIVING AT HOME INDEPENDENTLY WITH HIS SPOUSE. PT HAS CANE AND HOME / PORTABLE OXYGEN PROVIDED BY [facility]. PT HAS NO OUTSIDE SERVICES ASSISTING IN THE HOME. CM DISCUSSED AVAILABILITY OF HOME HEALTH, REHAB SERVICES AND MEDICAL EQUIPMENT. PT DENIES DISCHARGE NEEDS, REPORTS HIS SPOUSE IS HERE TO PICK HIM UP FOR DISCHARGE HOME. CM OFFERED TO HAVE HOME HEALTH CALL, PT DECLINED AND REPORTS THAT HE ALSO REFUSED [facility]. PT ASSURES CM THAT THEY WILL CONTACT THE DOCTOR IF ANYTHING CHANGES IF THEY FEEL THEY NEED ANY SERVICES AT HOME. IMPORTANT MESSAGE FROM MEDICARE PROVIDED AND EXPLAINED. Helminthologist: Cayetano Pickering
--- NOTE | 2016-10-25 11:11 | NUR ---
DISCHARGE INSTRUCTIONS COMPLETED AND PAPERS SIGNED. PT IS HAS ALL HIS BELONGINGS AND AT BEDSIDE TO TRANSPORT HIM. W/C CALLED AND PT READY TO BE DISCHARGED. NO FURTHER NEEDS.
[2016-10-25 17:12] LABS: FACTOR II DNA ANALYSIS Negative (())
== END 2016-10-25 11:13 | disposition home or self-care (01) | DRG 166 ==
LOC: D.ER 23:19 → D.M2 10-20 02:14
PROVIDERS: Family Medicine; Internal Medicine Hematology & Oncology; Physician Assistant Medical; Radiology Diagnostic Radiology; Surgery; ADMIT Family Medicine
PROC: 06H03DZ Insertion of Intraluminal Device into Inferior Vena Cava, Percutaneous Approach (ICD-10-PCS; principal; 2016-10-23 08:50)
DX: I26.99 Other pulmonary embolism without acute cor pulmonale (principal); J18.9 Pneumonia, unspecified organism; G93.41 Metabolic encephalopathy; I82.402 Acute embolism and thrombosis of unspecified deep veins of left lower extremity; S22.39XA Fracture of one rib, unspecified side, initial encounter for closed fracture; I50.22 Chronic systolic (congestive) heart failure; C34.11 Malignant neoplasm of upper lobe, right bronchus or lung; J44.1 Chronic obstructive pulmonary disease with (acute) exacerbation; J91.0 Malignant pleural effusion; S00.93XA Contusion of unspecified part of head, initial encounter; W19.XXXA Unspecified fall, initial encounter; D64.9 Anemia, unspecified; I48.0 Paroxysmal atrial fibrillation; I25.10 Atherosclerotic heart disease of native coronary artery without angina pectoris; E78.5 Hyperlipidemia, unspecified; M06.9 Rheumatoid arthritis, unspecified; J30.9 Allergic rhinitis, unspecified; I08.1 Rheumatic disorders of both mitral and tricuspid valves; I27.2 Other secondary pulmonary hypertension; K21.9 Gastro-esophageal reflux disease without esophagitis; M81.0 Age-related osteoporosis without current pathological fracture; E11.9 Type 2 diabetes mellitus without complications; Z95.5 Presence of coronary angioplasty implant and graft; Z86.73 Personal history of transient ischemic attack (TIA), and cerebral infarction without residual deficits; Z86.010 Personal history of colon polyps; Z87.891 Personal history of nicotine dependence

== ENCOUNTER 2016-10-30 13:00 | Inpatient (IN) | payer MEDICARE, BC ==
[~2016-10-30] VITALS: Ht 182.9 cm; Wt 72.8 kg
[~2016-10-30 13:00] MED LIST changes: +BENZONATATE200 MG PO; +CHILDREN'S ASPI81 MG PO; +FLORAJEN3 CAPS460 MG PO; +PREDNISONE20 MG PO; +XARELTO15 MG PO
[2016-10-30 13:19] VITALS: BP 79/55; Ht 182.9 cm; Wt 72.8 kg
[2016-10-30 16:18] VITALS: BP 133/69
[2016-10-30 20:00] VITALS: BP 128/74
--- NOTE | 2016-10-30 21:56 | NUR ---
PT AWAKE, ALERT, ORIENTED, TALKING ON PHONE. PT DENIES ANY ACUTE NEEDS. PT IS IN NO ACUTE RESPIRATIONS. CONTINUE TO MONITOR CLOSELY.
[2016-10-31] VITALS: BP 132/79
--- NOTE | 2016-10-31 02:55 | NUR ---
PT LYING IN BED, EYES CLOSED, RESPIRATIONS EVEN AND UNLABORED. CONTINUE TO MONITOR CLOSELY.
[2016-10-31 04:00] VITALS: BP 130/74
[2016-10-31 04:41] LABS: BASOPHILS 0 % (0.0-2.0); EOSINOPHILS 0.1 % (0-7); HEMATOCRIT 30.6 % (42.0-54.0); HEMOGLOBIN 9.7 g/dL (13.5-17.5); IMMATURE GRANULOCYTES 0.5 % (0-5); LYMPHOCYTES 18.4 % (15-50); MCH 29.8 pg (26.0-34.0); MCHC 31.7 g/dL (31.0-37.0); MCV 94.2 fL (80.0-100.0); MEAN PLATELET VOLUME 10.2 fL (7.4-10.4); MONOCYTES 9.5 % (2-11); NEUTROPHILS 71.5 % (40-80); PLATELET COUNT 239 10x3/uL (130-400); RBC 3.25 10x6/uL (4.20-6.10); RDW 16.9 % (11.5-14.5); WBC 7.3 10x3/uL (4.8-10.8)
[2016-10-31 05:18] LABS: ALBUMIN 2.3 g/dL (3.4-5.0); ALKALINE PHOSPHATASE 53 U/L (46-116); ALT (SGPT) 22 U/L (10-68); BILIRUBIN - TOTAL 0.37 mg/dL (0.2-1.3); CALC OSMOLALITY 284 mosm/kg (275-300); CALCIUM 8.1 mg/dL (8.5-10.1); CARBON DIOXIDE 32.9 mmol/L (21.0-32.0); CREATININE - SERUM 0.8 mg/dL (0.6-1.3); UREA NITROGEN 17 mg/dL (7-18); eGFR NON AFRICAN AMERICAN > 90 mL/min (90-120)
[2016-10-31 05:43] LABS: GLUCOSE 231 mg/dL (74-106)
[2016-10-31 05:58] LABS: CHLORIDE - SERUM 103 mmol/L (98-107); POTASSIUM - SERUM 3.5 mmol/L (3.5-5.1); SODIUM 139 mmol/L (136-145)
--- NOTE | 2016-10-31 07:00 | NUR ---
PT WAS RECEIVED AT THE BEGINNING OF THIS SHIFT IN BED AWAKE AND ORIENTED X 3. AT BEDSIDE. NO COMPLAINTS OR CONCERNS. SPEAKING ABOUT BEING DISCHARGED TODAY. IS ANXIOUS FOR HIM TO DISCHARGE. VITAL SIGNS WNL. NO SIGNS OF ANY DISCOMFORT OR DISTRESS. CALL LIGHT IS IN REACH. WILL BE MONITORING AND ASSISTING PRN WITH ADL'S.
[2016-10-31 08:00] VITALS: BP 154/84
[2016-10-31] MEDS ORDERED: RYTHMOL PO (11:05)
--- NOTE | 2016-10-31 11:39 | NUR ---
pt is discharging from unit via to home with and personal car. discharge paperwork given to pt. with full understanding. personal belongings sent with pt. pt. was taken out to awaiting car in wheelchair.
--- NOTE | 2016-10-31 12:05 | NUR ---
Patient Name: MADHU ISAAC Admission Status: Urgent Accout number: [id number] Admission Date: 10-30-2016 : 1940 Admission Diagnosis: Attending: ARIEL Current LOS: 1 Anticipated DC Date: 10-31-2016 Planned Disposition: Home Primary Insurance: MEDICARE A & B LATE ENTRY: Discharge Planning Comments: * Is the patient Alert and Oriented? Yes 0 * How many steps to enter\exit or inside your home? 4-5 0 * PCP DR. BULLOCK 0 * Pharmacy [facility] 0 * Preadmission Environment Home with Family 0 * ADLs Independent 0 * Equipment [facility] 0 * Other Equipment HOME AND PORTABLE OXYGEN [facility] - MEDICAL EQUIPMENT PROVIDER 0 * List name and contact numbers for known caregivers / representatives who currently or will assist patient after discharge: DINORAH ISAAC, SPOUSE, 0 * Community resources currently utilized None 0 * Please name any agencies selected above. NONE 0 * Additional services required to return to the preadmission environment? No 0 * Has this patient been hospitalized within the prior 30 days at any hospital? Yes 0 CM MET WITH PT AND SPOUSE IN ROOM TO DISCUSS DISCHARGE PLANNING AND NEEDS. PT REPORTS LIVING AT HOME INDEPENDENTLY WITH HIS . PT HAS CANE AND OXYGEN FROM [facility]. PT DENIES NEED OF FURTHER EQUIPMENT FOR HOME USE. PT HAS NO OUTSIDE SERVICES ASSISTING IN THE HOME. CM DISCUSSED AVAILABILITY OF HOME HEALTH, REHAB SERVICES AND MEDICAL EQUIPMENT. PT DENIES DISCHARGE NEEDS, REPORTS HIS SPOUSE WILL DRIVE HOME FOR DISCHARGE TODAY. Geophysical Data Technician: Cayetano Pickering
--- NOTE | 2016-11-01 08:41 | CN ---
PATIENT NAME:MADHU ISAAC MEDICAL RECORD: [id number] : [birth year] LOCATION:D. D.2104 ADMIT DATE: 10/30/16 ACCOUNT: [id number] CONSULTING PHYSICIAN: CHUNG JACOBSEN MD REFERRING PHYSICIAN: DENISE FERRERA MD DATE OF CONSULTATION: 10/30/2016 DIAGNOSES: 1. Supraventricular tachycardia. 2. History of supraventricular tachycardia, status post ablation times 2. 3. Recent pulmonary emboli. HISTORY OF PRESENT ILLNESS: Mr. Lowe presents with palpitations, found to have supraventricular tachycardia, heart rate in the 170s. He does have ST depression, but he is not having any chest pain or chest discomfort with this. His last ablation he thinks was approximately 5 years ago. He is currently on no medications for this. He is on Eliquis due to the pulmonary embolus. PHYSICAL EXAMINATION: GENERAL APPEARANCE: Well-nourished, well-developed, appears stated age. Level of distress, comfortable. PSYCHIATRIC: Mental status, alert, normal affect. Orientation, oriented to time, place and person. EYES: Lids and conjunctiva, noninjected. No discharge, no pallor. ENT: Lips, teeth, gums, normal dentition. Oropharynx, no cyanosis, no pallor. NECK: Carotid arteries, bilateral normal upstroke, no bruits, no thrills. JUGULAR VEINS: No jugular venous pressure or distention. CERVICAL LYMPH NODES: Nontender, nonenlarged. THYROID: Not enlarged. Nontender. No nodules. LUNGS: Respiratory effort, unlabored. CHEST: Normal curvature. No thoracic deformity. No chest wall tenderness. Percussion, resonant. Auscultation, clear. No wheezes, no rales, no rhonchi. CARDIOVASCULAR: Precordial exam, nondisplaced. No heaves or pericardial thrills. Rate and rhythm, regular. Heart sounds, normal S1, normal S2. No S3, no gallop, no rub. Systolic murmur, not heard. Diastolic murmur, not heard. EXTREMITIES: No cyanosis, no edema. Peripheral pulses, full and equal in all extremities, except as noted. No bruits appreciated. ABDOMEN: Soft, nondistended. Normal aorta. No bruit. Nontender. No masses. Liver, nontender, no hepatomegaly. Spleen, nontender, no splenomegaly. MUSCULOSKELETAL: No joint tenderness. No joint swelling. No erythema. NEUROLOGICAL: Normal gait, normal strength, normal tone. SKIN: Warm and dry. REVIEW OF SYSTEMS: The patient reports easy bruising but reports no swollen glands. The patient reports no fever, no night sweats, no significant weight gain, no significant weight loss. No significant exercise tolerance. The patient reports no dry eyes, no irritation, no vision change. Patient reports no difficulty hearing and no ear pain. Patient reports no frequent nose bleeds or nose and sinus problems. Patient reports on arm pain on exertion. No shortness of breath while lying down. No history of heart murmur. Patient reports no cough, no wheezing or coughing up blood. Patient reports no abdominal pain, no vomiting. Normal appetite. No diarrhea and not vomiting blood. No nausea and no constipation. Patient reports no incontinence. No difficulty urinating. No hematuria. No increased frequency. Patient reports no muscle aches. No weakness, no arthralgias, no back pain. No swelling of the CONSULT REPORT [id number] MADHU ISAAC extremities. Patient reports no abnormal mole, no jaundice, no rashes. Reports no loss of consciousness. No weakness and no numbness. No seizures, dizziness, or headaches. The patient reports no depression, no sleep disturbance, feeling safe in a relationship and no alcohol abuse. Patient reports on fatigue. Reports no runny nose or sinus pressure. No itching, no hives, and no frequent sneezing. OVERALL IMPRESSION: Supraventricular tachycardia. At this time, we will try adenosine and see if this breaks the tachycardia. If not, we will place on an IV Cardizem drip. If this is not breakable, we will perform direct current cardioversion. TRANSINT:[id number] Voice Confirmation ID: [id number] DOCUMENT ID: [id number] CHUNG JACOBSEN MD at 0841 CC: [id number] DICTATION DATE: 10/30/16 140 [employer]: 10/30/16 190 DIS IN 10/31/16 [facility] [address] [place] [address]
== END 2016-10-31 11:40 | disposition home or self-care (01) | DRG 310 ==
LOC: D.M2 13:00
PROVIDERS: ADMIT Family Medicine
DX: I47.1 Supraventricular tachycardia (principal); J44.9 Chronic obstructive pulmonary disease, unspecified; I95.9 Hypotension, unspecified; I25.10 Atherosclerotic heart disease of native coronary artery without angina pectoris; I48.0 Paroxysmal atrial fibrillation; K21.9 Gastro-esophageal reflux disease without esophagitis; E78.5 Hyperlipidemia, unspecified; I10 Essential (primary) hypertension; M06.9 Rheumatoid arthritis, unspecified; E11.9 Type 2 diabetes mellitus without complications; Z86.711 Personal history of pulmonary embolism; Z86.718 Personal history of other venous thrombosis and embolism; Z85.118 Personal history of other malignant neoplasm of bronchus and lung; Z95.5 Presence of coronary angioplasty implant and graft; Z87.891 Personal history of nicotine dependence

== ENCOUNTER 2016-11-17 13:00 | Observation (INO) | payer MEDICARE, BC ==
[~2016-11-17] VITALS: Ht 182.9 cm; Wt 72.7 kg
[~2016-11-17 13:00] MED LIST changes: +RYTHMOL PO
[2016-11-17 13:37] LABS: BASOPHILS 0.1 % (0.0-2.0); EOSINOPHILS 0.6 % (0-7); HEMATOCRIT 37.6 % (42.0-54.0); HEMOGLOBIN 11.9 g/dL (13.5-17.5); IMMATURE GRANULOCYTES 0.2 % (0-5); MCH 30.4 pg (26.0-34.0); MCHC 31.6 g/dL (31.0-37.0); MCV 95.9 fL (80.0-100.0); MEAN PLATELET VOLUME 9.8 fL (7.4-10.4); MONOCYTES 8.2 % (2-11); NEUTROPHILS 51.9 % (40-80); PLATELET COUNT 207 10x3/uL (130-400); RBC 3.92 10x6/uL (4.20-6.10); WBC 8.6 10x3/uL (4.8-10.8)
[2016-11-17 13:55] LABS: ALBUMIN 2.5 g/dL (3.4-5.0); ALKALINE PHOSPHATASE 77 U/L (46-116); ALT (SGPT) 24 U/L (10-68); BILIRUBIN - TOTAL 0.33 mg/dL (0.2-1.3); CALC OSMOLALITY 284 mosm/kg (275-300); CALCIUM 8.9 mg/dL (8.5-10.1); CARBON DIOXIDE 28.6 mmol/L (21.0-32.0); CHLORIDE - SERUM 104 mmol/L (98-107); CREATININE - SERUM 0.9 mg/dL (0.6-1.3); GLUCOSE 191 mg/dL (74-106); POTASSIUM - SERUM 3.6 mmol/L (3.5-5.1); PROTEIN - SERUM 5.8 g/dL (6.4-8.2); SODIUM 141 mmol/L (136-145); UREA NITROGEN 10 mg/dL (7-18); eGFR NON AFRICAN AMERICAN 87 mL/min (90-120)
[2016-11-17 14:06] LABS: CKMB 2.9 U/L (0.0-3.6); CREATINE KINASE 42 UL (21-232); TROPONIN-I 0.051 ng/mL (0.000-0.060)
--- NOTE | 2016-11-17 19:00 | NUR ---
RECEIVED REPORT AND ASSUMED PT CARE FROM ER NURSE EMILY GREENFIELD. PT ARRIVES TO ROOM VIA WC. PLACED ON TELEMETRY. NSR ON MONITOR - HR 80'S. PT ON CARDIZEM GTT @ 10 MG/HR UPON ARRIVAL, INFUSING TO THE RIGHT AC. SITE APPEARS WNL. VSS, AFEBRILE. ADMISSION ASSESSMENT AND HISTORY OBTAINED. UNIT ROUTINES AND PROTOCOLS DISCUSSED, PT AND SPOUSE VERBALIZED UNDERSTANDING. CALL LIGHT PLACED WITHIN REACH.
--- NOTE | 2016-11-17 19:16 | NUR ---
PT ARRIVED TO UNIT. TRANSFERRED INTO BED. A&O RESTING QUIETLY. DENIES ANY PAIN. CARDIZEM DRIP INFUSING @10ML/HR VIA L.AC PIV WITH DRSG CDI AND SWAB CAPS IN USE. WILL CONTINUE WITH ADMISSION WORK-UP. NO CURRENT NEEDS. ORIENTED TO ROOM AND CL IN HAND, BED IN LOWEST, SIDE RAILS X2.
[2016-11-17 22:59] VITALS: BP 100/65; Ht 182.9 cm; Wt 72.7 kg
--- NOTE | 2016-11-18 | NUR ---
PT HR LOW 70'S. REMAINS NSR. SBP 100 - CARDIZEM GTT DECREASED TO 5 MG/HR. PT JOSEFINA WELL. WILL MONITOR.
[2016-11-18 00:28] LABS: CKMB 2.8 U/L (0.0-3.6); CREATINE KINASE 33 UL (21-232); TROPONIN-I 0.049 ng/mL (0.000-0.060)
[2016-11-18 00:30] VITALS: BP 126/55
--- NOTE | 2016-11-18 01:30 | NUR ---
PT'S HR NOW 58-61 ON MONITOR, REMAINS IN A SINUS RHYTHM. CARDIZEM TURNED OFF AT THIS TIME. WILL CONT TO MONITOR CLOSELY FOR ANY TACHYCARDIA. PT AND SPOUSE UPDATED ON POC.
[2016-11-18 04:30] VITALS: BP 133/66
--- NOTE | 2016-11-18 06:43 | NUR ---
PT REMAINS IN NSR ON MONITOR, HR 60'S. NO NEEDS VOICED. WILL CONT TO MONITOR.
[2016-11-18 08:18] VITALS: BP 147/67
[2016-11-18 08:39] LABS: CKMB 2.5 U/L (0.0-3.6); CREATINE KINASE 30 UL (21-232); TROPONIN-I 0.042 ng/mL (0.000-0.060)
--- NOTE | 2016-11-18 11:25 | NUR ---
IV AND TELEMETRY DCD. DC PLANS GIVEN. UNDERSTANDING VOICED. ESCORTED TO CAR BY W/C.
--- NOTE | 2016-11-19 12:40 | CN ---
PATIENT NAME:MADHU ISAAC MEDICAL RECORD: [id number] : [birth year] LOCATION:D. D.2117 ADMIT DATE: 11/17/16 ACCOUNT: [id number] CONSULTING PHYSICIAN: JUNE PAULINO MD REFERRING PHYSICIAN: SHALA HERNÁNDEZ MD DATE OF CONSULTATION: HISTORY OF PRESENT ILLNESS: A 76-year-old gentleman with a history of atrial fibrillation status post ablation times [address] German in [place]. He has a history of pulmonary embolus, already on anticoagulation, was admitted with episode of atrial fibrillation. This responded nicely in the ER, he has had one short episode previously, he has been having problems with his propafenone causing dizziness. Currently on baseline digoxin. We are asked to see him concerning his cardiovascular status.. PAST MEDICAL HISTORY: 1. History of deep venous thrombosis. 2. Hypertension. 3. Hyperlipidemia. 4. Atrial fibrillation. ALLERGIES: ALBUTEROL. SOCIAL HISTORY: He is a nonsmoker, nondrinker. Lives with of only 54 years. REVIEW OF SYSTEMS: The patient reports easy bruising but reports no swollen glands. The patient reports no fever, no night sweats, no significant weight gain, no significant weight loss. No significant exercise tolerance. The patient reports no dry eyes, no irritation, no vision change. Patient reports no difficulty hearing and no ear pain. Patient reports no frequent nose bleeds or nose and sinus problems. Patient reports on arm pain on exertion. No shortness of breath while lying down. No history of heart murmur. Patient reports no cough, no wheezing or coughing up blood. Patient reports no abdominal pain, no vomiting. Normal appetite. No diarrhea and not vomiting blood. No nausea and no constipation. Patient reports no incontinence. No difficulty urinating. No hematuria. No increased frequency. Patient reports no muscle aches. No weakness, no arthralgias, no back pain. No swelling of the extremities. Patient reports no abnormal mole, no jaundice, no rashes. Reports no loss of consciousness. No weakness and no numbness. No seizures, dizziness, or headaches. The patient reports no depression, no sleep disturbance, feeling safe in a relationship and no alcohol abuse. Patient reports on fatigue. Reports no runny nose or sinus pressure. No itching, no hives, and no frequent sneezing. MEDICATIONS: Typically include Atrovent 0.5 q.6 hours, Spiriva 18 mcg 1 puff daily, Xarelto 15 b.i.d., digoxin 0.125 q. day, Imodium 2 caps daily, prednisone 10 mg p.o. q. day, and metformin 500 mg b.i.d. PHYSICAL EXAMINATION: GENERAL: Elderly gentleman in no acute distress, appears stated age. VITAL SIGNS: Blood pressure 147/67, pulse 75 and regular. HEENT: Normocephalic, atraumatic. NECK: No JVD or bruit. HEART: Regular. CONSULT REPORT [id number] MADHU ISAAC LUNGS: Good air excursion. ABDOMEN: Soft, nontender. EXTREMITIES: Pulses 2+. No edema. IMAGING STUDIES: EKG without acute change. IMPRESSION: Atrial fibrillation, we will place on low dose beta blockade. Given his recent episode, this might be still exacerbated by pulmonary embolus. Would continue Xarelto he is currently on. Thank you for this consultation. TRANSINT:[id number] Voice Confirmation ID: [id number] DOCUMENT ID: [id number] JUNE PAULINO MD at 1240 CC: [id number] DICTATION DATE: 11/18/16 111 TOPOGRAPHIC COMPUTATOR: 11/18/161912 DIS IN 11/18/16 [facility] [address] [place] [address]
== END 2016-11-18 11:26 | disposition home or self-care (01) ==
LOC: D.ER 13:00 → OBSVTIME 17:44 → D.M2 17:44
PROVIDERS: Emergency Medicine; ADMIT Emergency Medicine
DX: I48.0 Paroxysmal atrial fibrillation (principal); Z79.01 Long term (current) use of anticoagulants; Z86.711 Personal history of pulmonary embolism; Z86.718 Personal history of other venous thrombosis and embolism; I10 Essential (primary) hypertension; E78.5 Hyperlipidemia, unspecified; M06.9 Rheumatoid arthritis, unspecified; E11.9 Type 2 diabetes mellitus without complications; J44.9 Chronic obstructive pulmonary disease, unspecified; K21.9 Gastro-esophageal reflux disease without esophagitis; I25.10 Atherosclerotic heart disease of native coronary artery without angina pectoris; Z95.5 Presence of coronary angioplasty implant and graft; Z85.118 Personal history of other malignant neoplasm of bronchus and lung; Z87.891 Personal history of nicotine dependence

== ENCOUNTER → 2016-12-12 13:23 | Outpatient (CLI) | payer MEDICARE, BC ==
[2016-11-17 22:59] VITALS: BMI 21.7
== END | disposition home or self-care (01) ==
LOC: D.RT 13:23
DX: J44.9 Chronic obstructive pulmonary disease, unspecified (principal)

== ENCOUNTER 2017-02-08 08:33 | Emergency (ER) | payer MEDICARE, BC ==
[2016-11-17 22:59] VITALS: BMI 21.7
[2017-02-08 09:18] LABS: BASOPHILS 0.1 % (0-2); EOSINOPHILS 0.2 % (0-7); HEMATOCRIT 40.4 % (42.0-54.0); HEMOGLOBIN 12.5 g/dL (13.5-17.5); IMMATURE GRANULOCYTES 0.3 % (0-5); LYMPHOCYTES 16.7 % (15-50); MCH 27.7 pg (26.0-34.0); MCHC 30.9 g/dL (31.0-37.0); MCV 89.4 fL (80.0-100.0); MEAN PLATELET VOLUME 10.1 fL (7.4-10.4); MONOCYTES 6.4 % (2-11); NEUTROPHILS 76.3 % (40-80); PLATELET COUNT 285 10x3/uL (130-400); RBC 4.52 10x6/uL (4.20-6.10); RDW 15.7 % (11.5-14.5); WBC 14.8 10x3/uL (4.8-10.8)
[2017-02-08 09:36] LABS: ALKALINE PHOSPHATASE 76 U/L (46-116); ALT (SGPT) 29 U/L (10-68); BILIRUBIN - TOTAL 0.48 mg/dL (0.2-1.3); CALC OSMOLALITY 286 mosm/kg (275-300); CARBON DIOXIDE 29.3 mmol/L (21.0-32.0); CHLORIDE - SERUM 103 mmol/L (98-107); CREATININE - SERUM 0.9 mg/dL (0.6-1.3); GLUCOSE 234 mg/dL (74-106); POTASSIUM - SERUM 4.3 mmol/L (3.5-5.1); PROTEIN - SERUM 6.8 g/dL (6.4-8.2); SODIUM 138 mmol/L (136-145); UREA NITROGEN 20 mg/dL (7-18); eGFR NON AFRICAN AMERICAN 87 mL/min (90-120)
[2017-02-08 09:43] LABS: PRO BNP 6179 pg/mL (0-450)
== END 2017-02-08 10:59 | disposition home or self-care (01) ==
LOC: D.ER 08:33
PROVIDERS: Emergency Medicine
DX: J44.1 Chronic obstructive pulmonary disease with (acute) exacerbation (principal); J15.9 Unspecified bacterial pneumonia; I10 Essential (primary) hypertension; C34.90 Malignant neoplasm of unspecified part of unspecified bronchus or lung; I45.10 Unspecified right bundle-branch block

== ENCOUNTER → 2017-03-04 13:21 | Outpatient (CLI) | payer MEDICARE, BC ==
[2016-11-17 22:59] VITALS: BMI 21.7
== END | disposition home or self-care (01) ==
LOC: D.US 13:21
DX: I82.403 Acute embolism and thrombosis of unspecified deep veins of lower extremity, bilateral (principal)

== ENCOUNTER 2017-03-12 08:50 | Day surgery (SDC) | payer MEDICARE, BC ==
[~2017-03-12] VITALS: Ht 177.8 cm; Wt 71.4 kg
--- NOTE | ~2017-03-12 | OP ---
PATIENT NAME: MADHU ISAAC MEDICAL RECORD: [id number] :42 LOCATION:D.MS Schmitt2218 ADMISSION DATE: SURGEON: RUDDY GLASER MD DATE OF OPERATION: 03/12/2017 PREOPERATIVE DIAGNOSES: 1. Recurrent right inguinal hernia. 2. Coronary artery disease. 3. History of deep venous thrombosis. 4. Diabetes mellitus. 5. Hyperlipidemia. 6. Atrial fibrillation. POSTOPERATIVE DIAGNOSES: 1. Recurrent right inguinal hernia. 2. Coronary artery disease. 3. History of deep venous thrombosis. 4. Diabetes mellitus. 5. Hyperlipidemia. 6. Atrial fibrillation. PROCEDURE: Right inguinal hernia repair. SURGEON: Ruddy Glaser MD. REPORT OF PROCEDURE: The patient's right groin was prepped and draped in sterile fashion. An oblique incision was made above the inguinal ligament. Electrocautery was used to dissect through the subcutaneous tissues to the external oblique fascia. This fascia was opened up to the external ring using electrocautery. There was a lot of scar tissue present in this area and we tediously dissected through this tissue. The patient had a PHS mesh in the inguinal canal. This mesh was dissected from the surrounding attachments. We were eventually able to find the patient's spermatic cord. The cord structures themselves appeared to be normal with no sign of hernia, but just lateral to the spermatic cord, there was a hernia sac visible. This hernia sac was protruding through the PHS mesh through an opening that was likely made just to form a house around the spermatic cord. The mesh otherwise is in good position and adherent to the surrounding tissues, we were able to free up the hernia from the surrounding tissues and placed it back into the abdominal cavity. We then took the visible mesh and just close the sides of it to obliterate this small cavity that was left. This was done using interrupted 0 Prolenes times 4. The remainder of the mesh was tacked down on all sides using interrupted 0 Vicryls. Just for some added support postoperatively. The wound was then irrigated out with normal saline and care was taken to make sure there was no sign of any bleeding. The patient's ilioinguinal nerve was visible and this was highly ligated. The external oblique fascia was then closed with running 2-0 Vicryl, Wilfred's was closed with interrupted 3-0 Vicryls and the skin was closed with running subcutaneous 5-0 Monocryl. A total of 10 mL of 0.25% Marcaine with epinephrine was infused into the surrounding tissues and the wound was dressed appropriately. COMPLICATIONS: None. CONDITION: Stable. OPERATIVE REPORT [id number] MADHU ISAAC ANESTHESIA: Spinal and local. BLOOD LOSS: Minimal. TRANSINT:[id number] Voice Confirmation ID: [id number] DOCUMENT ID: [id number] RUDDY GLASER MD CC: DIANA BULLOCK M.D. [id number] DICTATION DATE: 03/12/17 1400 DIRECTOR OUTPATIENT SERVICES: 03/12/17 2200 [facility] [address] [place] [address]
[~2017-03-12 08:50] MED LIST changes: +CYMBALTA60 MG PO; +ELIQUIS2.5 MG PO
[2017-03-12] MEDS ORDERED: ARAVA10 MG PO (09:31)
[2017-03-12 09:37] LABS: BASOPHILS 0.4 % (0-2); EOSINOPHILS 1.3 % (0-7); HEMATOCRIT 37.4 % (42.0-54.0); HEMOGLOBIN 11.6 g/dL (13.5-17.5); IMMATURE GRANULOCYTES 0.1 % (0-5); LYMPHOCYTES 34.1 % (15-50); MCH 27.2 pg (26.0-34.0); MCV 87.8 fL (80.0-100.0); MEAN PLATELET VOLUME 9.9 fL (7.4-10.4); MONOCYTES 12.5 % (2-11); NEUTROPHILS 51.6 % (40-80); RBC 4.26 10x6/uL (4.20-6.10); RDW 16.7 % (11.5-14.5); WBC 6.8 10x3/uL (4.8-10.8)
[2017-03-12 09:38] LABS: PLATELET COUNT 222 10x3/uL (130-400)
[2017-03-12 10:04] LABS: CALC OSMOLALITY 286 mosm/kg (275-300); CALCIUM 8.6 mg/dL (8.5-10.1); CARBON DIOXIDE 33.2 mmol/L (21.0-32.0); CHLORIDE - SERUM 104 mmol/L (98-107); CREATININE - SERUM 0.8 mg/dL (0.6-1.3); POTASSIUM - SERUM 3.6 mmol/L (3.5-5.1); SODIUM 143 mmol/L (136-145); UREA NITROGEN 13 mg/dL (7-18); eGFR NON AFRICAN AMERICAN > 90 mL/min (90-120)
[2017-03-12 10:05] LABS: GLUCOSE 138 mg/dL (74-106)
[2017-03-12 10:06] VITALS: BP 138/77; BMI 22.5
[2017-03-12 10:09] LABS: APTT 24.5 SECONDS (22.8-39.4); INR 0.96 (0.85-1.17); PROTIME 12.6 SECONDS (11.6-15.0)
[2017-03-12] MEDS ORDERED: HYDROCODONE-APA1 TAB PO (13:52)
--- NOTE | 2017-03-12 14:27 | NUR ---
DIETRICH IRRIGATED PER ANESTHESIA WITH DICHARGE NOTED FROM THE END OF THE PENIS. BULB DEFLATED RED TINGED URINE NOTED IN CATHETER. DR BAÑUELOS NOTIFIED AND ORDERED RMOVAL OF URINARY CATHETER. DR GLASER ORDERED TRANSPORT TO OUTPATIENT TO FOLLOW NORMAL DICHARGE PROCEEDURES.
--- NOTE | 2017-03-12 20:02 | NUR ---
REPORT CALLED TO SAW MILNER RN ON MED-SURG, PATIENT TRANSFERRED BY WHEELCHAIR TO ROOM 2378
--- NOTE | 2017-03-12 20:30 | NUR ---
REC'D FROM OUT PT DEPT PER WC A 76 Y/O W/M PER SERVICES DR. GLASER POST OP RT INGUINAL HERNIA REPAIR. DRESSING TO SITE C/D/I. IV PATENT LEFT INFUSAPORT SALINE LOCKED. PT UP AD RUBENS TO BR VOIDED SMALL AMOUNT. STATES WILL TRY AGAIN. SR UP X2 CALL LIGHT WITHIN REACH DENIES PAIN OR DISCOMFORT.
--- NOTE | 2017-03-12 21:00 | NUR ---
UP AD RUBENS TO BR VOIDED IN COMMODE LARGE AMOUNT.
--- NOTE | 2017-03-12 22:00 | NUR ---
MEDS GIVEN PER OCT. VOIDED A THIRD TIME IN BATHROOM/ .
[2017-03-13] VITALS: BP 159/82
--- NOTE | 2017-03-13 | NUR ---
EYES CLOSED RESPIRATIONS WITH EASE AND UNLABORED WEARS O2 PRN USE ONLY.
--- NOTE | 2017-03-13 02:00 | NUR ---
EYES CLOSED RESPIRATIONS WITH EASE AND UNLABORED.
[2017-03-13 04:00] VITALS: BP 143/79
[2017-03-13 04:21] VITALS: Ht 177.8 cm; Wt 71.4 kg
--- NOTE | 2017-03-13 04:41 | NUR ---
RESTING QUIETLY DENIES NEEDS. SR UP X2 CALL LIGHT WITHIN REACH.
[2017-03-13 08:00] VITALS: BP 142/73
--- NOTE | 2017-03-13 08:39 | NUR ---
A&O, READY TO GO HOME, BED LOWEST POSITION, CALL LIGHT IN REACH, WILL CONTINUE TO MONITOR
--- NOTE | 2017-03-13 09:22 | NUR ---
LEFT CHEST INFUSAPORT DEACCESSED. FLUSHED PER PROTOCOL. RUSSELL NEEDLE REMOVED INTACT. SITE COVERED WITH GAUZE AND BANDAID.
--- NOTE | 2017-03-13 09:50 | NUR ---
DISCHARGE PAPERS AND INSTRUCTIONS GIVEN TO PT, QUESTIONS ANSWERED, LEFT CHEST PORT DEACCESSED BY AVA DIAZ, DISCHARGED PER WC WITH AND BELONGINGS
== END 2017-03-13 09:53 | disposition home or self-care (01) ==
LOC: D.MS 08:50 → D.OPS 08:50 → D.PAN 10:45 → D.OPS 10:45 → D.MS 20:05 → D.OPS 03-13 09:53
PROVIDERS: Anesthesiology; Surgery
DX: K40.91 Unilateral inguinal hernia, without obstruction or gangrene, recurrent (principal); I25.10 Atherosclerotic heart disease of native coronary artery without angina pectoris; Z86.718 Personal history of other venous thrombosis and embolism; E11.9 Type 2 diabetes mellitus without complications; E78.5 Hyperlipidemia, unspecified; I48.91 Unspecified atrial fibrillation; Z01.812 Encounter for preprocedural laboratory examination

== ENCOUNTER → 2017-03-19 12:34 | Outpatient (CLI) | payer MEDICARE, BC ==
[2017-03-13 04:21] VITALS: BMI 22.5
[~2017-03-19 12:34] MED LIST changes: +HYDROCODONE-APA1 TAB PO
== END | disposition home or self-care (01) ==
LOC: D.RAD 12:34
DX: C34.11 Malignant neoplasm of upper lobe, right bronchus or lung (principal)

== ENCOUNTER → 2017-03-26 16:23 | Outpatient (CLI) | payer MEDICARE, BC ==
[2017-03-13 04:21] VITALS: BMI 22.5
== END | disposition home or self-care (01) ==
LOC: D.CT 03-21 15:30
DX: C34.11 Malignant neoplasm of upper lobe, right bronchus or lung (principal)

== ENCOUNTER 2017-04-01 10:40 | Emergency (ER) | payer MEDICARE, BC ==
[2017-03-13 04:21] VITALS: BMI 22.5
== END 2017-04-01 13:25 | disposition home or self-care (01) ==
LOC: D.ER 10:40
DX: R06.00 Dyspnea, unspecified (principal); J44.1 Chronic obstructive pulmonary disease with (acute) exacerbation; I10 Essential (primary) hypertension; Z85.118 Personal history of other malignant neoplasm of bronchus and lung; I45.10 Unspecified right bundle-branch block; I44.60 Unspecified fascicular block; I45.2 Bifascicular block

== ENCOUNTER 2017-04-15 05:37 | Outpatient (CLI) | payer MEDICARE, BC ==
[~2017-04-15] VITALS: Ht 177.8 cm; Wt 68.2 kg
--- NOTE | ~2017-04-15 | HEMODYNAMI ---
PATIENT:MADHU ISAAC MEDICAL RECORD: [id number] : 42 LOCATION:DROBBIE ADMISSION DATE: 04/15/17 Generatedon:04/15/20179:10 Patient name: MADHU ISAAC Patient #: [id number] SSN: : 1940 Date of study: 04/15/2017 Page: Of Hemodynamic Procedure Report Patient Data Patient Demographics Procedure consent was obtained First Name: MADHU Gender: Male Last Name: PONCHO : 1940 Middle Initial: ELFEGO Age: 76 year(s) Patient #: [id number] Race: Unknown Additional ID: [id number] Contact details Address: [address] [place] [address] [facility] State: [place] City: [place] Zip code: [address] Admission Admission Data Admission Date: 04/15/2017 Admission Time: 5:37 Procedure Procedure Types Cath Procedure Peripheral Cath Diagnostic Procedure Miscellaneous Procedure Description Procedure Date Procedure Date: 04/15/2017 Procedure Start Time: 8:42 Procedure Staff Name Function Elijah Monzon MD Performing Physician Mariela Blair RT Scrub Federico Reich RN Nurse Leopoldo Herrera RT Monitor Procedure Data Cath Procedure Fluoroscopy Diagnostic fluoroscopy Total fluoroscopy Time: 1.7 time: 1.7 min min Diagnostic fluoroscopy Total fluoroscopy dose: 55 dose: 55 mGy mGy Contrast Material Contrast Material Type Amount (ml) Isovue 300 20 Procedure Medications Medication Administration Route Dosage Versed I.V. 1 mg Fentanyl I.V. 50 mcg Hemodynamics Rest Heart Rate: 87 (bpm) Snapshots Pre Cath Intra NCS Post Cath Vital Signs Time Heart Resp SPO2 NIBP (mmHg) Rhythm Pain Sedation Rate (ipm) (%) Status Level (bpm) 8:16:28 98 137/77(116) NSR 0 (11) 10(A) , No pain 8:20:38 75 18 98 138/81(110) NSR 0 (11) 10(A) , No pain 8:24:48 82 16 99 136/78(108) NSR 0 (11) 10(A) , No pain 8:28:59 85 16 99 128/70(82) NSR 0 (11) 10(A) , No pain 8:33:05 90 19 100 133/80(116) NSR 0 (11) 10(A) , No pain 8:37:13 87 18 99 129/78(96) NSR 0 (11) 10(A) , No pain 8:41:21 85 13 100 129/75(123) NSR 0 (11) 10(A) , No pain 8:45:29 82 19 99 134/75(102) NSR 0 (11) 10(A) , No pain 8:49:37 84 15 99 143/77(127) NSR 0 (11) 10(A) , No pain 8:53:47 86 16 98 150/71(100) NSR 0 (11) 10(A) , No pain 8:58:05 88 14 98 141/66(92) NSR 0 (11) 10(A) , No pain 9:02:19 84 15 97 109/67(89) NSR 0 (11) 10(A) , No pain 9:07:18 81 18 97 Measuring NSR 0 (11) 10(A) , No pain 9:07:22 82 19 97 132/67(87) NSR 0 (11) 10(A) , No pain Medications Time Medication Route Dose Verified Delivered Reason Notes Effectivenes s by by 8:43:54 Versed I.V. 1 mg Elijah Caballero for Na lane MD RN 8:44:17 Fentanyl I.V. 50 Elijah Caballero mcg Na Reich MD business continuity coordinator Log Time Note 8:15:01 Leopoldo Herrera RT (R) (CV) sent for patient. Start room use. 8:15:09 Time tracking: Regular hours 8:15:14 Plan of Care:Hemodynamics will remain stable., Cardiac rhythm will remain stable., Comfort level will be maintained., Respiratory function will remain adequate., Patient/ family verbilizes understanding of procedure., Procedure tolerated without complication., Recovers from procedure without complications.. 8:15:18 Patient received from Outpatients to IR Alert and oriented. Tansferred to table in Supine position. 8:15:20 Correct patient and procedure confirmed by team. 8:15:22 Signed procedure consent form obtained from patient. 8:15:23 ECG and BP/O2 sat monitors applied to patient. 8:15:25 Full Disclosure recording started 8:15: Baseline sample Acquired. 8:15: Vital chart was started 8:16:23 8:16:28 H&P Date Dictated: 04/15/2017 H&P Addendum completed by physician on day of procedure. (MUST COMPLETE FOR ALL OUTPATIENTS). 8:16:29 Pre-procedure instructions explained to patient. 8:16:29 Pre-op teaching completed and patient verbalized understanding. 8:16:53 Family in waiting room. 8:16:57 Patient NPO since Midnight. 8:17:00 Is the patient allergic to Iodine/contrast media? No. 8:17:02 Is patient on blood thinner?Yes 8:17:05 ACC The patient was administered the following blood thiners within the last 24 hours: Terrell 8:17:08 Patient diabetic? No. 8:17:12 8:17:12 ----Pre-sedation anethsthesia assessment.---- 8:17:15 Previous problem with sedation/anesthesia? No ? 8:17:16 Snore? No 8:17:18 Sleep apnea? No 8:17:19 Deviated septum? No 8:17:20 Opens mouth fully? Yes 8:17:21 Sticks out tongue? Yes 8:17:35 Dentures? Yes ? 8:17:39 Airway obstruction? Yes copd 8:17:51 Patient pain scale 0/10 no pain. 8:18:09 IV patent on arrival in right forearm with 0.9% NaCl at KVO. 8:18:24 Right neck area was prepped with chlora-prep and draped in sterile fashion 8:18:28 Alarms reviewed by R. N. 8:18:29 Sharps counted by scrub and verified by R.N. 8:18:33 Use device set IR Diagnostic 8:18:35 Acist Syringe opened to sterile field. 8:18:36 Acist Hand Control opened to sterile field. 8:18:36 Acist Manifold opened to sterile field. 8:18:37 Bag Decanter opened to sterile field. 8:18:37 Sterile Angiographic Pack opened to sterile field. 8:21:33 Baseline sample Acquired. 8:25:59 Baseline sample Acquired. 8:40:21 --------ALL STOP TIME OUT------ 8:40:21 Final Timeout: patient, procedure, and site verified with staff and physician. All members of the team are in agreement. 8:40:23 Right neck site verified by team. 8:40:31 Physical assessment completed. ASA score P 3 - A patient with severe systemic disease as per Elijah Monzon MD. 8:40:35 Sedation plan: IV Moderate Sedation Versed, Fentanyl 8:42:57 Local anesthetic to right IJ vein with Lidocaine 1% by Elijah Monzon MD.INITIAL ACCESS ONLY 8:43:54 Versed 1 mg I.V. was administered by Federico Reich RN; for sedation; 8:44:17 Fentanyl 50 mcg I.V. was administered by Federico Reich RN; ; 8:44:47 Cook BENTSON 145cm guide wire opened to sterile field. 8:44:47 Micropuncture VSI 4FR kit opened to sterile field. 8:44:47 TUBING, CONTRAST INJCTN HI PRES opened to sterile field. 8:44:50 TUBING, CONTRAST INJCTN HI PRES opened to sterile field. 8:46:43 Bard SNARE RETRIEVAL KIT opened to sterile field. 8:52:53 DILATOR, VESSEL 10/20 opened to sterile field. 9:01:17 Procedure ended.(Physican Out) 9:02:56 Procedure ended.(Physican Out) 9:03:27 Fluoroscopy time 01.70 minutes. 9:03:29 Fluoroscopy dose: 55 mGy 9:03:29 Flurop Dose total: 55 9:03:59 Contrast amount:Isovue 300 20ml. 9:04:00 Sharps counted by scrub and verified by R.N. 9:04:02 Insertion/operative site no bleeding no hematoma. 9:04:09 Post-op/insertion site Right Jugular vein dressed using a 4 x 4 and Tegaderm. 9:04:14 Post right IJ vein:stable 9:04:16 Post Procedure Pulses reassessed and unchanged 9:04:20 Post-procedure physical assessment completed. ASA score P 3 - A patient with severe systemic disease as per Elijah Monzon MD. 9:04:23 Post procedure instruction explained to patient.Patient verbalizes understanding. 9:04:24 Procedure and supply charges have been captured, reviewed, submitted and are correct. 9:09:54 Report given to Outpatients. 9:09:59 Patient transfered to Outpatients with Stretcher. 9:10:38 Vital chart was stopped Device Usage Item Name Manufacture Quantity Catalog Hospital Part Current Minima l Lot# / Number Charge Number Stock Stock Serial# Code Acist Syringe Acist 1 [id number] [id number] 20 Medical [employer] Inc Acist Hand Acist 1 27147 804405 [id number] [id number] 5 Control Medical Systems Inc Acist Acist 1 67289 341744 550927 070720 5 Manifold Medical Systems Inc Bag Decanter Microtek 1 2002S 770604 32426 938959 5 Medical Inc. Sterile Cardinal 1 [id number] 094688 742562 5 Angiographic Health Pack [facility] 1 [id number] [id number] 5 145cm guide wire Micropuncture VSI VASCULAR 1 [id number] 796408 759815 5 VSI 4FR kit SOLUTIONS TUBING, Merit 2 [id number] 299051 601861 965608 5 CONTRAST Medical INJCTN HI PRES Bard SNARE Bard 1 [id number] 762267 834395 5 RETRIEVAL KIT DILATOR, Cook Medical 1 [id number] 377885 10819 682533 5 [id number] VESSEL 05/24 Signature Audit [place] Stage Time Signature Unsigned Intra-Procedure 04/15/2017 Leopoldo 9:10:35 AM [place] RT (R) (CV) Signatures Monitor : Leopoldo Signature : [place] RT Date : Time : [place] [id number] [place] [address]
[2017-04-15 06:17] LABS: BASOPHILS 0.2 % (0-2); EOSINOPHILS 1.4 % (0-7); HEMATOCRIT 37.5 % (42.0-54.0); HEMOGLOBIN 11.8 g/dL (13.5-17.5); IMMATURE GRANULOCYTES 0.2 % (0-5); LYMPHOCYTES 31.8 % (15-50); MCHC 31.5 g/dL (31.0-37.0); MCV 85.8 fL (80.0-100.0); MEAN PLATELET VOLUME 9.8 fL (7.4-10.4); MONOCYTES 7.5 % (2-11); NEUTROPHILS 58.9 % (40-80); PLATELET COUNT 247 10x3/uL (130-400); RBC 4.37 10x6/uL (4.20-6.10); WBC 9.7 10x3/uL (4.8-10.8)
[2017-04-15 06:23] VITALS: BP 118/68; Ht 177.8 cm; Wt 68.2 kg
[2017-04-15 06:28] LABS: INR 0.96 (0.85-1.17); PROTIME 12.6 SECONDS (11.6-15.0)
[2017-04-15 06:40] LABS: CALC OSMOLALITY 283 mosm/kg (275-300); CALCIUM 8.5 mg/dL (8.5-10.1); CARBON DIOXIDE 26.8 mmol/L (21.0-32.0); CHLORIDE - SERUM 106 mmol/L (98-107); CREATININE - SERUM 0.9 mg/dL (0.6-1.3); GLUCOSE 139 mg/dL (74-106); SODIUM 142 mmol/L (136-145); UREA NITROGEN 11 mg/dL (7-18); eGFR NON AFRICAN AMERICAN 87 mL/min (90-120)
== END 2017-04-15 11:15 | disposition home or self-care (01) ==
LOC: D.OPS 05:37 → D.RAD 08:00 → D.OPS 11:15
PROVIDERS: Radiology Diagnostic Radiology
DX: I82.402 Acute embolism and thrombosis of unspecified deep veins of left lower extremity (principal); I26.99 Other pulmonary embolism without acute cor pulmonale; E11.9 Type 2 diabetes mellitus without complications; J44.9 Chronic obstructive pulmonary disease, unspecified; I10 Essential (primary) hypertension; K21.9 Gastro-esophageal reflux disease without esophagitis; Z01.812 Encounter for preprocedural laboratory examination

== ENCOUNTER 2017-05-02 11:59 | Inpatient (IN) | payer MEDICARE, BC ==
--- NOTE | ~2017-05-02 | HEMODYNAMI ---
PATIENT:MADHU ISAAC MEDICAL RECORD: [id number] : 42 [facility] [id number] ADMISSION DATE: 05/02/17 Generatedon:05/03/201711:26 Patient name: MADHU ISAAC Patient #: [id number] SSN: : 1940 Date of study: 05/03/2017 Page: Of Hemodynamic Procedure Report Patient Data Patient Demographics Procedure consent was obtained First Name: MADHU Gender: Male Last Name: PONCHO : 1940 [facility] Initial: ELFEGO Age: 76 year(s) Patient #: [id number] Race: Unknown Additional ID: [id number] Contact details Address: [address] [place] [address] [facility] State: [place] City: [place] Zip code: [address] Admission Admission Data Admission Date: 05/02/2017 Admission Time: 22:48 Room #: D.2118 Lab Results Lab Result Date: 05/03/2017 Lab Result Time: 0:00 Biochemistry Name Units Result Min Max BUN mg/dl 19 --(----)*- 7 18 Creatinine mg/dl 0.9 --(-*--)-- 0.6 1.3 CBC Name Units Result Min Max Hemoglobin g/dl 11.2 *-(----)-- 13.5 17.5 Procedure Procedure Types Cath Procedure Diagnostic Procedure [facility] w/Coronaries FFR/IVUS Intra-Coronary IVUS Initial PCI Procedure Coronary Stent Initial Miscellaneous Procedures Moderate Sedation up to 30 minutes Procedure Description Procedure Date Procedure Date: 05/03/2017 Procedure Start Time: 11:06 Procedure End Time: 11:25 Procedure Staff Name Function Yaw Gonzalez MD Performing Physician Taina Villeda RT Scrub Carson Hardy RN Nurse Ashley Woodson RT Monitor Procedure Data Cath Procedure Fluoroscopy Diagnostic fluoroscopy Total fluoroscopy Time: 5.1 time: 5.1 min min Diagnostic fluoroscopy Total fluoroscopy dose: 975 dose: 975 mGy mGy Contrast Material Contrast Material Type Amount (ml) Isovue 300 103 Entry Location Entry Primary Successful Side Size Upsize Upsize Entry Closure Stevenson ccessful Closure Location (Fr) 1 (Fr) 2 (Fr) Remarks Device Remarks Radial Right 6 Fr Mechanical artery Short Compression Estimated blood loss: 5 ml Diagnostic catheters Device Type Used For End Catheter Placement Diagnostic Terumo 5Fr Multi-vessel Mascot 110cm catheter Angiography Procedure Complications No complications Procedure Medications Medication Administration Route Dosage Oxygen NC 2 l/min Lidocaine 2% added to field 20 Heparin Flush Bag added to field 2 bags (1000units/500ml NS) 0.9% NaCl I.V. 100 ml/hr Versed I.V. 1 mg Fentanyl I.V. 50 mcg Radial Cocktail I.A. 1 syringe (Verapomil 2mg/Nitro 400mcg/Heparin 1500units) Heparin Bolus I.V. 4000 units Versed I.V. 1 mg Fentanyl I.V. 50 mcg Plavix P.O. 75 mg Hemodynamics Rest HGB: 11.2 (g/dl) Heart Rate: 99 (bpm) Snapshots Pre Cath Intra NCS Post Cath Vital Signs Time Heart Resp SPO2 NIBP (mmHg) Rhythm Pain Sedation Rate (ipm) (%) Status Level (bpm) 10:59:28 96 35 100 163/98(142) NSR 0 (11) 10(A) , No pain 11:03:40 96 33 97 154/92(133) NSR 0 (11) 10(A) , No pain 11:07:50 95 29 96 152/89(126) NSR 0 (11) 10(A) , No pain 11:12:00 95 19 95 137/84(108) NSR 0 (11) 9(A) , No pain 11:16:04 93 18 97 146/86(117) NSR 0 (11) 9(A) , No pain 11:20:11 93 19 98 142/84(117) NSR 0 (11) 10(A) , No pain 11:24:15 92 18 99 152/90(129) NSR 0 (11) 10(A) , No pain Medications Time Medication Route Dose Verified Delivered Reason Note s Effectiveness by by 10:58:02 Oxygen NC 2 l/min Carson Byrd used for Hayley Hardy RN procedure 10:58:11 Lidocaine 2% added 20ml Carson Tidwell for local to vial Hayley Gonzalez MD anesthetic field 10:58:17 Heparin Flush added 2 bags Carson Tidwell used for Bag to Hayley Gonzalez MD procedure (1000units/500ml field NS) 10:58:25 0.9% NaCl I.V. 100 Buffartem Byrd Per physician ml/hr Hayley Hardy RN 11:08:08 Versed I.V. 1 mg Carson Byrd for sedation Hayley Hardy RN 11:08:14 Fentanyl I.V. 50 mcg Carson Byrd for sedation Hayley Hardy RN 11:08:21 Radial Cocktail I.A. 1 Carson Tidwell for (Verapomil syringe Hayley Gonzalez MD vasodilation 2mg/Nitro 400mcg/Heparin 1500units) 11:13:34 Heparin Bolus I.V. 4000 Carson Byrd for veri fied units Hayley Hardy RN anticoagulation with dr gonzalez 11:15:39 Versed I.V. 1 mg Carson Byrd for sedation Hayley Hardy RN 11:15:43 Fentanyl I.V. 50 mcg Carson Byrd for sedation Hayley Hardy RN 11:23:27 Plavix P.O. 75 mg Carson Byrd for Hayley Hardy RN antiplatelet therapy Procedure Log Time Note 10:37:57 Diagnostic Cath status Elective 10:37:59 Carson Hardy RN sent for patient. Start room use. 10:38:00 Time tracking: Regular hours 10:38:05 Plan of Care:Hemodynamics will remain stable., Cardiac rhythm will remain stable., Comfort level will be maintained., Respiratory function will remain adequate., Patient/ family verbilizes understanding of procedure., Procedure tolerated without complication., Recovers from procedure without complications.. 10:49:00 Patient received from Med II to CCL 2 Alert and oriented. Tansferred to table in Supine position. 10:49:02 Warm blankets applied, and martín hugger turned on for patient comfort. 10:49:02 Correct patient and procedure confirmed by team. 10:49:04 Signed procedure consent form obtained from patient. 10:49:05 ECG and BP/O2 sat monitors applied to patient. 10:58:02 Oxygen 2 l/min NC was administered by Carson Hardy RN; used for procedure; 10:58:11 Lidocaine 2% 20ml vial added to field was administered by Yaw Gonzalez MD; for local anesthetic; 10:58:17 Heparin Flush Bag (1000units/500ml NS) 2 bags added to field was administered by Yaw Gonzalez MD; used for procedure; 10:58:25 0.9% NaCl 100 ml/hr I.V. was administered by Carson Hardy RN; Per physician; 10:58:26 Baseline sample Acquired. 10:58:26 Vital chart was started 10:58:32 Rhythm: sinus tachycardia 10:58:35 Full Disclosure recording started 10:58:38 H&P Date Dictated: 05/03/2017 New H&P dictated by physician.. 10:58:39 Pre-procedure instructions explained to patient. 10:58:40 Pre-op teaching completed and patient verbalized understanding. 10:58:41 Family in waiting room. 10:58:42 Patient NPO since Midnight. 10:58:45 Is the patient allergic to Iodine/contrast media? No. 10:58:46 Was the patient premedicated? No 10:58:47 Is patient on blood thinner?Yes 10:58:50 ACC The patient was administered the following blood thiners within the last 24 hours: ACCPlavix 10:59:07 Patient diabetic? Yes. 10:59:08 If diabetic: On Metformin? Yes 10:59:12 If on Metformin: Last Dose? 05/02/2017 10:59:22 Previous problem with sedation/anesthesia? No ? 10:59:25 Snore? Yes 10:59:26 Sleep apnea? No 10:59:27 Deviated septum? No 10:59:39 Opens mouth fully? Yes 10:59:41 Sticks out tongue? Yes 10:59:45 Airway obstruction? Yes copd 10:59:50 Dentures? No ? 10:59:53 Pre procedure: right dorsailis pedis pulse 1+ Palpable, but thready & weak; easily obliterated 10:59:56 Patient pain scale 0/10 ?. 11:00:29 IV patent on arrival in port with 0.9% NaCl at [facility]. 11:02:16 Lab results completed and on chart. 11:02:20 Right Radial & Right Groin area was prepped with chlora-prep and draped in sterile fashion 11:02:21 Alarms reviewed by R. N. 11:02:21 Sharps counted by scrub and verified by R.N. 11::22 Physician arrived 11:: --------ALL STOP TIME OUT------ ::23 Final Timeout: patient, procedure, and site verified with staff and physician. All members of the team are in agreement. 11:02:25 Right Radial & Right Groin site verified by team. 11:02:28 Physical assessment completed. ASA score P 2 - A patient with mild systemic disease as per Yaw Gonzalez MD. 11:02:32 Sedation plan: IV Moderate Sedation Versed, Fentanyl 11:03:21 Use device set Radial Dx 11:03:22 Acist Syringe opened to sterile field. 11:03:22 Medline Cath Pack opened to sterile field. 11:03:23 Bag Decanter opened to sterile field. 11:03:23 Terumo 6Fr Slender Glidesheath opened to sterile field. 11:03:23 St Deion 260cm J .035 wire opened to sterile field. 11:03:24 Acist Hand Control opened to sterile field. 11:03:24 Acist Manifold opened to sterile field. 11:03:24 Tegaderm 4 x 4 opened to sterile field. 11:03:25 MBrace Wrist Support opened to sterile field. 11:04:02 Lab Result : BUN 19 mg/dl 11:04:02 Lab Result : Hemoglobin 11.2 g/dl 11:04:02 Lab Result : Creatinine 0.9 mg/dl 11:06:28 Zero performed for pressure channel P1 11:06:36 Procedure started. 11:06:40 Local anesthetic to right radial artery with Lidocaine 2% by Yaw Gonzalez MD.INITIAL ACCESS ONLY 11:06:52 A 6 Fr Short sheath was inserted into the Right Radial artery 11:07:45 A Diagnostic Terumo 5Fr Mascot 110cm catheter was advanced over the wire and used for Multi-vessel Angiography. 11:08:08 Versed 1 mg I.V. was administered by Carson Hardy RN; for sedation; 11:08:14 Fentanyl 50 mcg I.V. was administered by Carson Hardy RN; for sedation; 11:08:21 Radial Cocktail (Verapomil 2mg/Nitro 400mcg/Heparin 1500units) 1 syringe I.A. was administered by Yaw Gonzalez MD; for vasodilation; 11:08:34 LV gram done using LE 11:08:37 Injector settings: Ml/sec: 5, Volume: 15, 11:08:47 EF : 30 % 11:10:02 RCA angiography performed. 11:10:04 Injector settings: Ml/sec: 3, Volume: 6, 11:10:24 Catheter removed. 11:11:13 Medtronic Launcher 6Fr EBU 4.0 guide catheter opened to sterile field. 11:11:28 6 Fr ebu 4 guide catheter was inserted over the wire 11:12:36 LCA angiography performed. 11:12:41 Injector settings: Ml/sec: 3, Volume: 6, 11:13:34 Heparin Bolus 4000 units I.V. was administered by Carson Hardy RN; for anticoagulation; verified with dr gonzalez 11:13:54 Proceeding to intervention. 11:14:09 Zaman Whisper J 300cm 0.014 guide wire opened to sterile field. 11:14:10 Holland Mobile Eagleye IVUS Catheter opened to sterile field. 11:14:11 Monesbat BasixCompak Inflation Kit opened to sterile field. 11:14:28 whisper wire advanced. 11:14:33 Wire advanced across lesion. 11:15:31 IVUS catheter advanced over wire. 11:15:39 Versed 1 mg I.V. was administered by Carson Hardy RN; for sedation; 11:15:43 Fentanyl 50 mcg I.V. was administered by Carson Hardy RN; for sedation; 11:17:07 IVUS pass to LAD lesion performed. 11:17:12 Wire redirected to lcx. 11:17:15 IVUS pass to Circ lesion performed. 11:17:18 IVUS catheter removed over wire. 11:19:22 Inflation Number: 1 A Medtronic Integrity 3.0 X 18 stent was prepped and advanced across the Mid CX. The stent was deployed at 11 MABLE for 0:10 (min:sec). 11:19:36 Inflation number: 2 The stent balloon was then re-inflated across the Mid CX to 13 MABLE for 0:10 (min:sec). 11:22:28 Stent catheter was removed intact over wire. 11:22:29 Wire removed. 11:22:29 Guide catheter removed. 11:22:54 Terumo TR Band Standard opened to sterile field. 11:23:05 Sheath removed intact; hemostasis achieved with Mechanical Compression to the Right Radial artery. 11:23:08 Procedure ended.(Physican Out) 11:23:16 Fluoroscopy time 05.10 minutes. 11:23:20 Flurop Dose total: 975 11:23:20 Fluoroscopy dose: 975 mGy 11::25 Contrast amount:Isovue 300 103ml. 11::27 Plavix 75 mg P.O. was administered by Carson Hardy RN; for antiplatelet therapy; 11:: Sharps counted by scrub and verified by R.N. 11:23:29 TR band inflated with 10cc of air. 11:23:33 Insertion/operative site no bleeding no hematoma. 11:23:36 Post right radial artery:stable 11:24:35 Post procedure rhythm: unchanged. 11:24:38 Estimated blood loss: 5 ml 11:24:39 Post procedure instruction explained to patient.Patient verbalizes understanding. 11:24:39 Patient needs reinforcement of post procedure teaching. 11:24:56 Procedure type changed to Cath procedure, Diagnostic procedure, LHC, LHC w/Coronaries, FFR/IVUS, Intra-Coronary IVUS Initial, PCI procedure, Coronary Stent Initial, Miscellaneous Procedures, Moderate Sedation up to 30 minutes 11:25:01 Procedure and supply charges have been captured, reviewed, submitted and are correct. 11:25:06 Procedure Complication : No complications 11:25:08 Vital chart was stopped 11:25:11 Report given to [facility]. 11:25:13 Patient transfered to [facility] with Stretcher. 11:25:15 Procedure ended. 11:25:15 Full Disclosure recording stopped ::22 ACC-PCI Only Patient was given prescriptions, or instructed by Yaw Gonzalez MD to start/continue the following medications upon discharge: Plavix 11:25:23 End room use (Document Last) Intervention Summary Intervention Notes Time ActionType Lesion and Equipment Action# Pressure Duration Attributes Used 11::22 Place stent Mid CX Medtronic 1 11 00:10 Integrity 3.0 X 18 stent 11:19:36 Reinflate Mid CX Medtronic 2 13 00:10 stent Integrity balloon 3.0 X 18 stent Device Usage Item Name Manufacture Quantity Catalog Hospital Part Current Minimal Lot# / Number Charge Number Stock Stock Serial# Code [facility] 1 [id number] [id number] 058602 710706 20 Syringe Medical Systems Inc Medline Cardinal 1 [id number] 484686 62562 513557 5 Cath Pack Health Bag Microtek 1 2002S 419708 28017 295373 5 Dec91 Boyuan Wireles [employer] Inc. Terumo 6Fr Terumo 1 [id number] 902063 326419 482224 [address] De[address] St Deion 1 349862 690330 107981 948815 30 260cm J .035 wire Acist Hand Acist 1 53772 746528 453472 663760 5 Control Medical Systems Inc Acist Acist 1 95740 791029 530804 574076 5 Manifold Medical Systems Inc Tegaderm 4 3M 1 1626W 940213 434573 370926 5 x 4 MBrace Advanced 1 140-0250-00 611495 57090 045509 5 Wrist Vascular Support Dynamics Diagnostic Terumo 1 75-9268 066878 485682 820535 5 Terumo 5Fr Mascot 110cm catheter Medtronic Medtronic 1 [id number] 410530 50571 562410 1 Launcher 6Fr EBU 4.0 guide catheter Zaman Zaman 1 [id number] 431782 561141 261041 5 Whisper J Vascular 300cm 0.014 guide wire Holland Holland 1 [id number] 210608 607058 775897 8 Mobile Eagleye IVUS Catheter [facility] 1 SO3216 903335 376951 299671 15 BasixCompak Medical Inflation Kit Medtronic Medtronic 1 [id number] 189696 574878 4 [id number] Integrity 3.0 X 18 stent Terumo TR Terumo 1 [id number] 037280 901415 048729 40 Band Standard Signature Audit Terlton Stage Time Signature Unsigned Intra-Procedure 05/03/2017 Ashley Woodson 11:26:49 AM RT(R) Signatures Monitor : Ashley Woodson RT Signature : Date : Time : [facility] [address] [facility] [place], [facility]
--- NOTE | 2017-05-02 23:40 | NUR ---
PT ARRIVES TO FLOOR VIA WC ACCOMPANIED BY ER NURSE AND PT'S SPOUSE. INITIAL ASSESSMENT COMPLETED, VSS, AFEBRILE. O2 2LPM NC PLACED ON PT FOR COMFORT. VSS, AFEBRILE. NSR ON MONITOR. HR 80'S. DENIES ANY C/O PAIN UPON ARIVAL. LEFT CHEST WALL WITH INFUSAPORT ACCESSED IN THE ER. PATENT AND SITE APPEARS WNL. HENRRY CDI. MEDICATIONS RECONCILED AT THE BEDSIDE. UNIT ROUTINES AND PROTOCOLS DISCUSSED WITH PT. VERBALIZED UNDERSTANDING. CALL LIGHT WITHIN REACH. WILL CONT TO MONITOR.
[2017-05-03] VITALS: BP 144/89
[2017-05-03 00:18] VITALS: BMI 21.1
[2017-05-03 04:00] VITALS: BP 115/44; BP 139/85
--- NOTE | 2017-05-03 06:30 | NUR ---
DR ALTAMIRANO HERE TO SEE PT, NEW ORDERS RECEIVED FOR CARDIAC CATH FOR TODAY. DR ALTAMIRANO DISCUSSED THIS WITH THE PT.
[2017-05-03 06:40] LABS: BASOPHILS 0 % (0-2); EOSINOPHILS 0 % (0-7); HEMATOCRIT 35.2 % (42.0-54.0); HEMOGLOBIN 11.2 g/dL (13.5-17.5); IMMATURE GRANULOCYTES 0.1 % (0-5); LYMPHOCYTES 21.4 % (15-50); MCH 27.9 pg (26.0-34.0); MCHC 31.8 g/dL (31.0-37.0); MCV 87.6 fL (80.0-100.0); MEAN PLATELET VOLUME 10.7 fL (7.4-10.4); MONOCYTES 6.9 % (2-11); NEUTROPHILS 71.6 % (40-80); PLATELET COUNT 257 10x3/uL (130-400); RBC 4.02 10x6/uL (4.20-6.10); RDW 17.6 % (11.5-14.5)
[2017-05-03 06:41] LABS: WBC 7.4 10x3/uL (4.8-10.8)
[2017-05-03 07:08] LABS: CALC OSMOLALITY 282 mosm/kg (275-300); CALCIUM 8.5 mg/dL (8.5-10.1); CARBON DIOXIDE 24.9 mmol/L (21.0-32.0); CHLORIDE - SERUM 105 mmol/L (98-107); CREATININE - SERUM 0.9 mg/dL (0.6-1.3); GLUCOSE 139 mg/dL (74-106); POTASSIUM - SERUM 4.6 mmol/L (3.5-5.1); SODIUM 140 mmol/L (136-145); UREA NITROGEN 19 mg/dL (7-18); eGFR NON AFRICAN AMERICAN 87 mL/min (90-120)
[2017-05-03 07:38] VITALS: BP 149/88
[2017-05-03 11:07] VITALS: BMI 21.1
--- NOTE | 2017-05-03 16:47 | OP ---
PATIENT NAME: MADHU ISAAC MEDICAL RECORD: [id number] :[birth year] LOCATION:D.M2 D.2118 ADMISSION DATE:05/02/17 SURGEON: CHUNG JACOBSEN MD DATE OF OPERATION: 05/03/2017 PROCEDURES: 1. PTCA stent to left circumflex. 2. Left heart catheterization. 3. Selective coronary angiography. 4. Left ventriculogram. 5. Intravascular ultrasound of the LAD and circumflex. PROCEDURE IN DETAIL: After informed consent was obtained and after detailed explanation of risks, benefits as well as alternative therapies, the patient elected to proceed with angiogram and angioplasty. The right radial area was prepped and draped in normal sterile fashion. The right radial artery was cannulated via modified Seldinger technique with placement of 6-Danish sheath. All catheters exchanged through this sheath. FINDINGS: Left ventriculogram was performed in the standard 30-degree LE view reveals good cardiac wall motion throughout all segments. There is global hypokinesis throughout all segments. Overall ejection fraction estimated at 35%. SELECTIVE CORONARY ANGIOGRAPHY: 1. Left main showed no significant angiographic disease. 2. Left anterior descending has mild irregularities proximally; however, intravascular ultrasound revealed that this is not flow limiting. 3. The left circumflex has greater than 70% stenosis in the mid vessel confirmed by intravascular ultrasound. 4. Right coronary has moderate irregularities, but no flow-limiting stenosis. PTCA STENT OF THE LEFT CIRCUMFLEX: The stent used 3.0 x 18 mm Integrity. Result was 0% residual stenosis. OVERALL IMPRESSION: Successful percutaneous transluminal coronary angioplasty stent of the left circumflex going from 70% to 80% initial stenosis to 0% residual. TRANSINT:[id number] Voice Confirmation ID: [id number] DOCUMENT ID: [id number] CHUNG JACOBSEN MD at 1647 CC: [id number] DICTATION DATE: 05/03/17 1123 GARDENER FLORIST: 05/03/17 1303 ADM IN [place] [id number] [place] [address]
[2017-05-03 20:00] VITALS: BP 120/66
[2017-05-04] VITALS: BP 148/80
[2017-05-04 04:00] VITALS: BP 153/86
[2017-05-04 05:17] LABS: BASOPHILS 0.1 % (0-2); EOSINOPHILS 0 % (0-7); HEMATOCRIT 31.4 % (42.0-54.0); HEMOGLOBIN 10.1 g/dL (13.5-17.5); IMMATURE GRANULOCYTES 0.2 % (0-5); MCH 27.9 pg (26.0-34.0); MCHC 32.2 g/dL (31.0-37.0); MCV 86.7 fL (80.0-100.0); MEAN PLATELET VOLUME 10.4 fL (7.4-10.4); MONOCYTES 4.3 % (2-11); NEUTROPHILS 84.4 % (40-80); PLATELET COUNT 228 10x3/uL (130-400); RBC 3.62 10x6/uL (4.20-6.10); RDW 17.8 % (11.5-14.5)
[2017-05-04 05:36] LABS: CALC OSMOLALITY 287 mosm/kg (275-300); CALCIUM 8.2 mg/dL (8.5-10.1); CARBON DIOXIDE 25.6 mmol/L (21.0-32.0); CHLORIDE - SERUM 108 mmol/L (98-107); CREATININE - SERUM 0.8 mg/dL (0.6-1.3); GLUCOSE 180 mg/dL (74-106); POTASSIUM - SERUM 4.2 mmol/L (3.5-5.1); SODIUM 141 mmol/L (136-145); UREA NITROGEN 18 mg/dL (7-18); eGFR NON AFRICAN AMERICAN > 90 mL/min (90-120)
[2017-05-04 08:00] VITALS: BP 152/81
--- NOTE | 2017-05-04 09:39 | NUR ---
TELEMETRY SR. LEAVING FOR CT BY W/C. WILL CONT. PLAN OF CARE.
--- NOTE | 2017-05-04 10:24 | NUR ---
HR UP TO 160. B/P 142/72 AND 02 SATS 98% ON 2L NC. NURSE COMPANION CALLED TO NOTIFY DR. OWUSU. WILL MONITOR.
--- NOTE | 2017-05-04 11:00 | NUR ---
LOPRESSOR GIVEN. HR 92. WILL MONITOR.
--- NOTE | 2017-05-04 11:48 | NUR ---
HR 88. WILL CONT. PLAN OF CARE.
[2017-05-04 12:00] VITALS: BP 127/64
[2017-05-04 13:48] LABS: APPEARANCE HAZY (CLEAR); BILIRUBIN NEGATIVE (NEGATIVE); COLOR YELLOW (YELLOW); GLUCOSE 250 mg/dL (NEGATIVE); KETONE NEGATIVE (NEGATIVE); NITRITE NEGATIVE (NEGATIVE); PROTEIN NEGATIVE (NEGATIVE); UROBILINOGEN NORMAL (NORMAL)
--- NOTE | 2017-05-04 15:09 | NUR ---
URINE SPECIMEN COLLECTED AND TAKEN TO LAB FOR UA.
[2017-05-04 16:00] VITALS: BP 169/90
--- NOTE | 2017-05-04 19:00 | NUR ---
RECEIVED REPORT AND ASSUMED PT CARE FROM DAY SHIFT NURSE @ THIS TIME.
[2017-05-04 20:52] VITALS: BP 170/96
--- NOTE | 2017-05-04 22:30 | NUR ---
PT RESTING IN BED WITHOUT C/O OR DISTRESS NOTED. DENIES ANY C/O PAIN @ THIS TIME. REMAINS NSR ON TELE, HR 90'S. CALL LIGHT WITHIN REACH. WILL CONT TO MONITOR.
[2017-05-05 01:06] VITALS: BP 158/94
--- NOTE | 2017-05-05 03:24 | NUR ---
PT UP TO BR, HR UP TO 170'S AND SUSTAINS. PT BECOMES DYSPNEIC AND EXPIRATORY WHEEZES HEARD THROUGH OUT ALL LUNG PATIÑO. B/P 170/[address] OWUSU CALLED, RETURNS CALL. LOPRESSOR 5 MG IV GIVEN SIVP X1. AFTER 5 MIN PT HR DOWN TO 132. WHEEZING CLEARED AND PT REPORTS NOT FEELING DYSPNEIC AT THIS TIME. WILL CONT TO MONITOR CLOSELY.
[2017-05-05 04:00] VITALS: BP 127/90
--- NOTE | 2017-05-05 06:12 | NUR ---
PT HR STEADILY INCREASING, NOW 153 [address] SUSTAINING. CALL TO DR OWUSU FOR FURTHER ORDERS. B/P STABLE 127/90. RETURNS CALL AND ORDERS LOPRESSOR 5 MG IV NOW AND MAY REPEAT IN 15 MINUTES IF NEEDED. PT UPDATED ON POC AND VERBALIZES UNDERSTANDING.
--- NOTE | 2017-05-05 06:24 | NUR ---
PREPARING TO PUSH LOPRESSOR IV, PT HR DOWN TO 102. WILL HOLD FOR RIGHT NOW AND MONITOR.
[2017-05-05 06:43] LABS: BASOPHILS 0 % (0-2); EOSINOPHILS 0 % (0-7); HEMATOCRIT 33.2 % (42.0-54.0); HEMOGLOBIN 10.5 g/dL (13.5-17.5); IMMATURE GRANULOCYTES 0.3 % (0-5); LYMPHOCYTES 10.2 % (15-50); MCH 27.7 pg (26.0-34.0); MCHC 31.6 g/dL (31.0-37.0); MCV 87.6 fL (80.0-100.0); MEAN PLATELET VOLUME 10.8 fL (7.4-10.4); MONOCYTES 6.1 % (2-11); NEUTROPHILS 83.4 % (40-80); PLATELET COUNT 269 10x3/uL (130-400); RBC 3.79 10x6/uL (4.20-6.10); RDW 18.3 % (11.5-14.5); WBC 10.9 10x3/uL (4.8-10.8)
[2017-05-05 06:49] LABS: CALC OSMOLALITY 286 mosm/kg (275-300); CALCIUM 8.2 mg/dL (8.5-10.1); CARBON DIOXIDE 25.8 mmol/L (21.0-32.0); CHLORIDE - SERUM 106 mmol/L (98-107); CREATININE - SERUM 0.7 mg/dL (0.6-1.3); GLUCOSE 201 mg/dL (74-106); POTASSIUM - SERUM 4.3 mmol/L (3.5-5.1); SODIUM 140 mmol/L (136-145); UREA NITROGEN 18 mg/dL (7-18); eGFR NON AFRICAN AMERICAN > 90 mL/min (90-120)
--- NOTE | 2017-05-05 06:58 | NUR ---
PT HR BACK UP TO 144 AND SUSTAINS. WILL GIVE LOPRESSOR IV 5 MG. REPORT TO ONCOMING NURSE @ THIS TIME.
[2017-05-05 08:00] VITALS: BP 137/74
--- NOTE | 2017-05-05 09:50 | NUR ---
TELEMETRY SR. HR 72. RESP UL ON 02 2L NC. CALL LIGHT IN REACH. WILL CONT. PLAN OF CARE.
[2017-05-05 16:00] VITALS: BP 130/74
[2017-05-05 19:00] VITALS: BP 143/82
--- NOTE | 2017-05-05 19:00 | NUR ---
RECEIVED REPORT AND ASSUMED PT CARE FROM DAY SHIFT NURSE @ THIS TIME.
[2017-05-06] VITALS: BP 154/75
[2017-05-06 04:22] VITALS: BP 156/98
[2017-05-06 05:48] LABS: CALC OSMOLALITY 284 mosm/kg (275-300); CARBON DIOXIDE 26.6 mmol/L (21.0-32.0); CHLORIDE - SERUM 103 mmol/L (98-107); CREATININE - SERUM 0.8 mg/dL (0.6-1.3); GLUCOSE 212 mg/dL (74-106); POTASSIUM - SERUM 4.2 mmol/L (3.5-5.1); SODIUM 138 mmol/L (136-145); UREA NITROGEN 21 mg/dL (7-18); eGFR NON AFRICAN AMERICAN > 90 mL/min (90-120)
[2017-05-06 05:50] LABS: BASOPHILS 0 % (0-2); EOSINOPHILS 0 % (0-7); HEMATOCRIT 34.6 % (42.0-54.0); IMMATURE GRANULOCYTES 0.2 % (0-5); LYMPHOCYTES 15.4 % (15-50); MCH 27.8 pg (26.0-34.0); MCHC 31.8 g/dL (31.0-37.0); MCV 87.6 fL (80.0-100.0); MEAN PLATELET VOLUME 10.8 fL (7.4-10.4); MONOCYTES 5.3 % (2-11); NEUTROPHILS 79.1 % (40-80); PLATELET COUNT 262 10x3/uL (130-400); RBC 3.95 10x6/uL (4.20-6.10)
[2017-05-06 08:00] VITALS: BP 154/96
--- NOTE | 2017-05-06 10:06 | NUR ---
TELEMETRY SR. RESP UL ON 02 2L NC. CALL LIGHT IN REACH. WILL CONT. PLAN OF CARE.
--- NOTE | 2017-05-06 10:26 | NUR ---
Patient Name: MADHU ISAAC Admission Status: ER Accout number: [id number] Admission Date: 05-03-2017 : 1940 Admission Diagnosis: Attending: NIESHA, Current LOS: 3 Anticipated DC Date: 05-06-2017 Planned Disposition: Home Primary Insurance: MEDICARE A & B Discharge Planning Comments: * Is the patient Alert and Oriented? Yes 0 * How many steps to enter\\exit or inside your home? 3 0 * PCP DR. BULLOCK 0 * Pharmacy [facility] 0 * Preadmission Environment Home with Family 0 * ADLs Independent 0 * Equipment Cane Nebulizer Oxygen Walker 0 * Other Equipment HOME AND PORTABLE OXYGEN [facility] - MEDICAL EQUIPMENT PROVIDER PREFERNCE 0 * List name and contact numbers for known caregivers / representatives who currently or will assist patient after discharge: DINORAH ISAAC, SPOUSE, 0 * Community resources currently utilized None 0 * Please name any agencies selected above. NONE 0 * Additional services required to return to the preadmission environment? No 0 * Can the patient safely return to the preadmission environment? Yes 0 * Has this patient been hospitalized within the prior 30 days at any hospital? No 0 CM MET WITH PT IN ROOM TO DISCUSS DISCHARGE PLANNING AND NEEDS. PT REPORTS LIVING AT HOME INDEPENDENTLY WITH SPOUSE. PT HAS CANE, NEBULIZER, HOME AND PORTABLE OXYGEN AND A WALKER FROM [facility]. PT HAS NO OUTSIDE SERVICES ASSISTING IN THE HOME. CM DISCUSSED AVAILABILITY OF HOME HEALTH, REHAB SERVICES AND MEDICAL EQUIPMENT. PT DENIES DISCHARGE NEEDS, REPORTS HIS WILL PICK HIM UP FOR DISCHARGE HOME. IMPORTANT MESSAGE FROM MEDICARE PROVIDED AND EXPLAINED. PT COMPLAINED THAT HIS MATRESS WAS WORN WITH A LARGE "HOLE" IN THE MIDDLE. CM EXAMINED MATTRESS WHICH WAS EXTREMELY COMPRESSED IN THE MIDDLE. CM NOTIFIED [employer]INS[employer] FARMER SHAWNDA WHO ORDERED NEW MATTRESS FOR PATIENT. CM TO FOLLOW AND ASSIST IF NEEDED. Global Implementation Manager: Cayetano Pickreing
[2017-05-06 11:43] VITALS: BP 132/63
--- NOTE | 2017-05-06 14:16 | NUR ---
UP TO SHOWER WITH BARREL CHARRER HELPER ASSIST.
[2017-05-06 16:00] VITALS: BP 134/69
[2017-05-06 19:13] VITALS: BP 140/81
[2017-05-07] VITALS: BP 136/83
--- NOTE | 2017-05-07 04:01 | NUR ---
PT'S HR UP TO 140'S ST. OCCASIONALLY DROPPING TO THE 70'S AND INCREASING BACK AGAIN TO 140'S. PT DENIES ANY C/O PAIN OR SHORTNESS OF BREATH. VSS, AFEBRILE. WILL MONITOR.
[2017-05-07 04:28] VITALS: BP 115/73
[2017-05-07 05:09] LABS: BASOPHILS 0 % (0-2); EOSINOPHILS 0.2 % (0-7); HEMATOCRIT 36.7 % (42.0-54.0); HEMOGLOBIN 11.7 g/dL (13.5-17.5); IMMATURE GRANULOCYTES 0.2 % (0-5); LYMPHOCYTES 25.4 % (15-50); MCH 28.1 pg (26.0-34.0); MCHC 31.9 g/dL (31.0-37.0); MEAN PLATELET VOLUME 10.9 fL (7.4-10.4); MONOCYTES 12.6 % (2-11); NEUTROPHILS 61.6 % (40-80); PLATELET COUNT 272 10x3/uL (130-400); RBC 4.17 10x6/uL (4.20-6.10); RDW 18.4 % (11.5-14.5); WBC 9.3 10x3/uL (4.8-10.8)
--- NOTE | 2017-05-07 05:18 | NUR ---
PT RESTING WELL. NO C/O NOTED. HR 77 NSR.
[2017-05-07 05:30] LABS: CALCIUM 8.3 mg/dL (8.5-10.1); CARBON DIOXIDE 30.1 mmol/L (21.0-32.0); CHLORIDE - SERUM 109 mmol/L (98-107); CREATININE - SERUM 0.7 mg/dL (0.6-1.3); SODIUM 143 mmol/L (136-145); UREA NITROGEN 18 mg/dL (7-18); eGFR NON AFRICAN AMERICAN > 90 mL/min (90-120)
[2017-05-07 05:34] LABS: CALC OSMOLALITY 286 mosm/kg (275-300); GLUCOSE 95 mg/dL (74-106); POTASSIUM - SERUM 3.5 mmol/L (3.5-5.1)
--- NOTE | 2017-05-07 06:22 | NUR ---
TOPROL XL 50 MG PO GIVEN EARLY. PT'S HR ELEVATED AGAIN TO 150. ASYMPTOMATIC AND B/P STABLE. WILL MONITOR.
--- NOTE | 2017-05-07 06:54 | NUR ---
CALL TO DR PAULINO RE: PT'S HR REMAINS ELEVATED - 160'S ON TELE. ORDERS FOR ONE TIME DOSE OF DIGOXIN 0.25 MG IV NOW. AWAITING PHARMACY TO PROCESS ORDER.
--- NOTE | 2017-05-07 07:40 | NUR ---
ASSESSMENT COMPLETED. DENIES ANY NEEDS. TELEMERTY SHOWS SR 98. LEFT IP SL. 02 AT 2 L/M PER NC. SR UP WITH CALL LIGHT IN REACH. WILL MONITOR
[2017-05-07 09:05] VITALS: BP 144/85
[2017-05-07 12:16] VITALS: BP 129/73
--- NOTE | 2017-05-07 15:13 | NUR ---
LYING QUIETLY. DENIES ANY NEEDS. FAMILY AT BEDSIDE TELEMERTY SHOWS SR 97
[2017-05-07 15:25] VITALS: BP 111/64
[2017-05-07] MEDS ORDERED: PLAVIX75 MG PO (15:58)
[2017-05-07] MEDS ORDERED: TOPROL XL50 MG PO (15:59)
[2017-05-07] MEDS ORDERED: K-TAB10 MEQ PO (16:01)
[2017-05-07] MEDS ORDERED: FUROSEMIDE20 MG PO (16:01)
[2017-05-07] MEDS ORDERED: PREDNISONE10 MG PO (16:02)
--- NOTE | 2017-05-07 17:30 | NUR ---
PT DISCHARGED. RUSSELL NEEDLE REMOVED FROM IP ATER FLUSHING WITH HEPARIN FLUSH. TO PRIVATE CAR PER WHEELCHAIR
--- NOTE | 2017-05-27 15:54 | DS ---
PATIENT:MADHU ISAAC :[birth year] MEDICAL RECORD: [id number] DISCHARGE SUMMARY ADMISSION DATE: 05/03/17 DISCHARGE DATE: 05/07/17 DATE OF ADMISSION: 05/03/2017 DATE OF DISCHARGE: 05/07/2017 DISCHARGE DIAGNOSES: 1. Acute congestive heart failure. 2. Non-Q-wave myocardial infarction. 3. Cardiomyopathy. 4. Left saddle pulmonary emboli. 5. Deep venous thrombosis. 6. Right pleural effusion. 7. Chronic obstructive pulmonary disease. 8. History of ztg-dgztd-yhne lung carcinoma. 9. Gastroesophageal reflux disease. 10. Smoking. 11. Pulmonary hypertension. 12. Coronary artery disease. 13. Hyperlipidemia. 14. Atrial fibrillation. 15. Supraventricular tachycardia. CONSULTS: 1. Dr. Gonzalez. 2. Dr. Zheng. PROCEDURES: 1. Left heart catheterization with bare-metal stent to the circumflex artery. 2. Venous Doppler of the lower extremities, which was negative. 3. CT of the chest, which showed moderate pleural effusions and bibasilar atelectasis. HOSPITAL COURSE: The full H&P is listed elsewhere on the chart for this 76-year-old patient, who presented with osylp-bn-yskyhad systolic failure and an elevated troponin. He was started on diuretic therapy along with some pulmonary medications, GI and DVT prophylaxis. He had a noted elevated D-dimer; however, he had been on treatment for previous saddle PE as well as DVT. He has had a recent CAT scan and venous Dopplers, were negative for new emboli. He underwent a left heart catheterization due to an elevated troponin and was found to have critical lesion, where he underwent PCI and stenting. His clinical condition improved after revascularization and diuretic therapy. He was thought to be stable to discharge to home to follow up in the outpatient setting. See med rec. TRANSINT:[id number] Voice Confirmation ID: [id number] DOCUMENT ID: [id number] Dictated By: CAMDEN JIMENEZ I have interviewed/examined the above patient and agree with these documented findings. DISCHARGE SUMMARY REPORT [id number] MADHU ISAAC at 1110 at 1553 CC: [id number] DICTATION DATE: 05/22/17 0842 SUPERVISOR PUMPING: 05/22/17 1251 DIS IN 05/07/17 [facility] [address] [place] [address]
== END 2017-05-07 17:33 | disposition home or self-care (01) | DRG 248 ==
LOC: D.ER 11:59 → OBSVTIME 22:48 → D.M2 22:48
PROVIDERS: Emergency Medicine; Internal Medicine Cardiovascular Disease; ADMIT Family Medicine
PROC: 4A023N7 Measurement of Cardiac Sampling and Pressure, Left Heart, Percutaneous Approach (ICD-10-PCS; 2017-05-03)
PROC: B2111ZZ Fluoroscopy of Multiple Coronary Arteries using Low Osmolar Contrast (ICD-10-PCS; 2017-05-03)
PROC: B2151ZZ Fluoroscopy of Left Heart using Low Osmolar Contrast (ICD-10-PCS; 2017-05-03)
PROC: 02703DZ Dilation of Coronary Artery, One Artery with Intraluminal Device, Percutaneous Approach (ICD-10-PCS; principal; 2017-05-03 10:30)
PROC: B241ZZ3 Ultrasonography of Multiple Coronary Arteries, Intravascular (ICD-10-PCS; 2017-05-03 10:30)
DX: I25.10 Atherosclerotic heart disease of native coronary artery without angina pectoris (principal); I50.23 Acute on chronic systolic (congestive) heart failure; J90 Pleural effusion, not elsewhere classified; J44.1 Chronic obstructive pulmonary disease with (acute) exacerbation; I47.1 Supraventricular tachycardia; Z99.81 Dependence on supplemental oxygen; J30.9 Allergic rhinitis, unspecified; I08.1 Rheumatic disorders of both mitral and tricuspid valves; Z79.01 Long term (current) use of anticoagulants; E78.5 Hyperlipidemia, unspecified; D63.8 Anemia in other chronic diseases classified elsewhere; K21.9 Gastro-esophageal reflux disease without esophagitis; I48.0 Paroxysmal atrial fibrillation; Z95.5 Presence of coronary angioplasty implant and graft; Z86.73 Personal history of transient ischemic attack (TIA), and cerebral infarction without residual deficits; Z86.718 Personal history of other venous thrombosis and embolism; Z85.118 Personal history of other malignant neoplasm of bronchus and lung; Z86.711 Personal history of pulmonary embolism; Z85.46 Personal history of malignant neoplasm of prostate; I27.20 Pulmonary hypertension, unspecified

== ENCOUNTER → 2017-05-02 20:16 | Emergency (ER) | payer MEDICARE, BC ==
[~2017-05-02 20:16] MED LIST changes: +ASPIRIN81 MG PO; +BETAPACE 120 M120 MG PO; +BROVANA15 MCG/2 M INH; +DOXYCYCLINE HY100 M2 PO; +FUROSEMIDE20 MG PO; +K-TAB10 MEQ PO; +OMNICEF300 MG PO; +PLAVIX75 MG PO; +PULMICORT0.5 MG/21 UPD; +TOPROL XL50 MG PO
[2017-05-02 21:33] LABS: BASOPHILS 0.2 % (0-2); EOSINOPHILS 0 % (0-7); HEMATOCRIT 34.3 % (42.0-54.0); HEMOGLOBIN 10.8 g/dL (13.5-17.5); IMMATURE GRANULOCYTES 0.2 % (0-5); MCH 27.7 pg (26.0-34.0); MCHC 31.5 g/dL (31.0-37.0); MCV 87.9 fL (80.0-100.0); MEAN PLATELET VOLUME 10.3 fL (7.4-10.4); NEUTROPHILS 80.6 % (40-80); PLATELET COUNT 238 10x3/uL (130-400); RDW 17.8 % (11.5-14.5); WBC 4.5 10x3/uL (4.8-10.8)
[2017-05-02 21:40] LABS: APTT 26.9 SECONDS (22.8-39.4); INR 1.09 (0.85-1.17); PROTIME 13.9 SECONDS (11.6-15.0)
[2017-05-02 22:25] LABS: TROPONIN-I 0.072 ng/mL (0.000-0.060)
== END | disposition home or self-care (01) ==
LOC: D.ER 20:16
PROVIDERS: Emergency Medicine
DX: J44.1 Chronic obstructive pulmonary disease with (acute) exacerbation (principal); R79.89 Other specified abnormal findings of blood chemistry; I10 Essential (primary) hypertension; Z85.118 Personal history of other malignant neoplasm of bronchus and lung

== ENCOUNTER 2017-06-20 13:43 | Inpatient (IN) | payer MEDICARE, BC ==
[~2017-06-20] VITALS: Ht 177.8 cm; Wt 67.4 kg
[~2017-06-20 13:43] MED LIST changes: -ASPIRIN81 MG PO; -BETAPACE 120 M120 MG PO; -BROVANA15 MCG/2 M INH; -DOXYCYCLINE HY100 M2 PO; -OMNICEF300 MG PO; -PULMICORT0.5 MG/21 UPD
[2017-06-20 15:06] LABS: BASOPHILS 0.1 % (0-2); EOSINOPHILS 0.1 % (0-7); HEMATOCRIT 38.8 % (42.0-54.0); IMMATURE GRANULOCYTES 0.2 % (0-5); LYMPHOCYTES 10.9 % (15-50); MCH 28.3 pg (26.0-34.0); MCHC 30.9 g/dL (31.0-37.0); MCV 91.5 fL (80.0-100.0); MEAN PLATELET VOLUME 10.6 fL (7.4-10.4); MONOCYTES 4.5 % (2-11); NEUTROPHILS 84.2 % (40-80); PLATELET COUNT 246 10x3/uL (130-400); RBC 4.24 10x6/uL (4.20-6.10); RDW 16.6 % (11.5-14.5); WBC 9.3 10x3/uL (4.8-10.8)
[2017-06-20 15:20] LABS: ALBUMIN 2.8 g/dL (3.4-5.0); ALKALINE PHOSPHATASE 65 U/L (46-116); ALT (SGPT) 34 U/L (10-68); BILIRUBIN - TOTAL 0.49 mg/dL (0.2-1.3); CALC OSMOLALITY 288 mosm/kg (275-300); CALCIUM 9.3 mg/dL (8.5-10.1); CARBON DIOXIDE 30.9 mmol/L (21.0-32.0); CHLORIDE - SERUM 105 mmol/L (98-107); CREATININE - SERUM 0.9 mg/dL (0.6-1.3); GLUCOSE 206 mg/dL (74-106); POTASSIUM - SERUM 5.1 mmol/L (3.5-5.1); PROTEIN - SERUM 6.1 g/dL (6.4-8.2); SODIUM 141 mmol/L (136-145); UREA NITROGEN 19 mg/dL (7-18); eGFR NON AFRICAN AMERICAN 87 mL/min (90-120)
[2017-06-20 15:36] LABS: CKMB 4.9 U/L (0.0-3.6); CREATINE KINASE 71 UL (21-232)
[2017-06-20 15:42] LABS: TROPONIN-I 0.171 ng/mL (0.000-0.060)
[2017-06-20 18:52] LABS: CKMB 5.1 U/L (0.0-3.6); CREATINE KINASE 70 UL (21-232)
[2017-06-20 18:53] LABS: TROPONIN-I 0.149 ng/mL (0.000-0.060)
[2017-06-20 19:00] VITALS: BP 135/94
--- NOTE | 2017-06-20 20:00 | NUR ---
PT ARRIVED TO ROOM 2106. PT AAO. INFUSAPORT ON LEFT CHEST. LEVAQUIN FINISHED. TELEMETRY APPLIED. PT DENIES ANY NEEDS AT THIS TIME. WILL CPOC
[2017-06-21] VITALS (7 sets, daily range): BP systolic 120–139; BP diastolic 72–87; Ht 177.8 cm; Wt 67.4 kg
--- NOTE | 2017-06-21 | NUR ---
PT RECEIVING A BREATHING TREATMENT. FLUSHED LEFT IP. INFUSAPORT DRSG CDI. PORT PATENT. PT DENIES ANY NEEDS. WILL CPOC
[2017-06-21 01:56] LABS: CKMB 3.8 U/L (0.0-3.6); CREATINE KINASE 56 UL (21-232)
[2017-06-21 01:57] LABS: TROPONIN-I 0.099 ng/mL (0.000-0.060)
--- NOTE | 2017-06-21 03:07 | NUR ---
PT ASLEEP. RESPIRATIONS EVEN AND UNLABORED. DENIES ANY NEEDS. NO S/S OF DISTRESS. WILL CPOC
--- NOTE | 2017-06-21 05:47 | NUR ---
PT IN GOOD MOOD. AAO. CONVERSATION ABOUT EKG'S AND ALSO DOING HIS HISTORY AFTER MED PASS. PT DENIES ANY NEEDS. NO S/S OF DISTRESS. WILL CPOC
[2017-06-21 06:29] LABS: BASOPHILS 0 % (0-2); EOSINOPHILS 0 % (0-7); HEMATOCRIT 31.8 % (42.0-54.0); HEMOGLOBIN 10.2 g/dL (13.5-17.5); IMMATURE GRANULOCYTES 0.3 % (0-5); LYMPHOCYTES 10.1 % (15-50); MCH 28.5 pg (26.0-34.0); MCHC 32.1 g/dL (31.0-37.0); MEAN PLATELET VOLUME 10.7 fL (7.4-10.4); NEUTROPHILS 86.6 % (40-80); PLATELET COUNT 221 10x3/uL (130-400); RBC 3.58 10x6/uL (4.20-6.10); RDW 16.3 % (11.5-14.5)
[2017-06-21 06:49] LABS: MCV 88.8 fL (80.0-100.0)
[2017-06-21 06:55] LABS: ALBUMIN 2.4 g/dL (3.4-5.0); ALKALINE PHOSPHATASE 52 U/L (46-116); ALT (SGPT) 25 U/L (10-68); CALC OSMOLALITY 283 mosm/kg (275-300); CALCIUM 8.2 mg/dL (8.5-10.1); CARBON DIOXIDE 28.8 mmol/L (21.0-32.0); CHLORIDE - SERUM 104 mmol/L (98-107); CKMB 3.4 U/L (0.0-3.6); CREATINE KINASE 53 UL (21-232); CREATININE - SERUM 0.8 mg/dL (0.6-1.3); GLUCOSE 166 mg/dL (74-106); POTASSIUM - SERUM 4.3 mmol/L (3.5-5.1); PROTEIN - SERUM 5.1 g/dL (6.4-8.2); SODIUM 139 mmol/L (136-145); TROPONIN-I 0.092 ng/mL (0.000-0.060); UREA NITROGEN 18 mg/dL (7-18); eGFR NON AFRICAN AMERICAN > 90 mL/min (90-120)
--- NOTE | 2017-06-21 07:45 | NUR ---
REPORT RECEIVED. RR EVEN AND UNLABORED, PT DENIES NEEDS AT THIS TIME. FAMILY AT BEDSIDE. WILL CTM.
--- NOTE | 2017-06-21 10:03 | NUR ---
TITLE INSPECTOR REPORTED HR TO BE 160. PT IS RESTING QUIETLY, RR EVEN AND UNLABORED. PT DENIES FEELING ANY SYMPTOMS OF ELEVATED HR. REPORTS FEELING FINE. WILL [facility] AND CTM.
--- NOTE | 2017-06-21 10:15 | NUR ---
SPOKE TO GELY PASCUAL ABOUT PTS HR BEING ELEVATED. REPORTED THAT SHE WILL CONSULT DR. JACOBSEN. NO OTHER ORDERS AT THIS TIME, WILL CTM PT CONDTION.
--- NOTE | 2017-06-21 12:30 | NUR ---
WILL GIVE ONE TIME CARDITANIAM. NOTIFIED CO CHAIRMAN THAT I WAS GOING TO GIVE MED. HR CURRENTLY 148. WILL RECHECK IN 15-30 MINUTES.
--- NOTE | 2017-06-21 13:00 | NUR ---
PTS HR IS NOW 75. DENIES NEEDS AT THIS TIME, RR EVEN AND UNLABORED. WILL CTM.
--- NOTE | 2017-06-21 14:14 | CN ---
PATIENT NAME:MADHU ISAAC MEDICAL RECORD: [id number] : 42 LOCATION:D.M2 D.2107 ADMIT DATE: 06/20/17 ACCOUNT: [id number] CONSULTING PHYSICIAN: CHUNG JACOBSEN MD REFERRING PHYSICIAN: SHALA HERNÁNDEZ MD DATE OF CONSULTATION: 06/21/2017 DIAGNOSES: 1. Atrial fibrillation with rapid ventricular response. 2. History of atrial fibrillation. 3. Previous ablation. 4. Coronary artery disease. 5. History of pulmonary embolus. 6. Deep vein thrombosis. 7. Previous lung cancer status post lobectomy. 8. COPD. HISTORY OF PRESENT ILLNESS: This is a gentleman with a past history of atrial fibrillation, who was admitted with COPD exacerbation, initially in sinus rhythm, he went into atrial flutter 2:1, at 160. He is currently still in atrial flutter. He is on metoprolol, digoxin, and Eliquis for the atrial fibrillation and the deep vein thrombosis, pulmonary embolus. He is not having any chest pain or chest discomfort. Last cardiac intervention was 2 months ago with a bare metal stent. He is off of Plavix at this time. PHYSICAL EXAMINATION: GENERAL APPEARANCE: Well-nourished, well-developed, appears stated age. Level of distress, comfortable. PSYCHIATRIC: Mental status, alert, normal affect. Orientation, oriented to time, place and person. EYES: Lids and conjunctiva, noninjected. No discharge, no pallor. ENT: Lips, teeth, gums, normal dentition. Oropharynx, no cyanosis, no pallor. NECK: Carotid arteries, bilateral normal upstroke, no bruits, no thrills. JUGULAR VEINS: No jugular venous pressure or distention. CERVICAL LYMPH NODES: Nontender, nonenlarged. THYROID: Not enlarged. Nontender. No nodules. LUNGS: Respiratory effort, unlabored. CHEST: Normal curvature. No thoracic deformity. No chest wall tenderness. Percussion, resonant. Auscultation, clear. No wheezes, no rales, no rhonchi. CARDIOVASCULAR: Tachy, irregular, with atrial fibrillation. EXTREMITIES: No cyanosis, no edema. Peripheral pulses, full and equal in all extremities, except as noted. No bruits appreciated. ABDOMEN: Soft, nondistended. Normal aorta. No bruit. Nontender. No masses. Liver, nontender, no hepatomegaly. Spleen, nontender, no splenomegaly. MUSCULOSKELETAL: No joint tenderness. No joint swelling. No erythema. NEUROLOGICAL: Normal gait, normal strength, normal tone. SKIN: Warm and dry. OVERALL IMPRESSION: Atrial fibrillation/atrial flutter with a tachy response. We will change his metoprolol to sotalol, give him 1 dose of Cardizem. Hopefully, this will restore normal sinus rhythm. TRANSINT:[id number] Voice Confirmation ID: [id number] DOCUMENT ID: [id number] CONSULT REPORT [id number] MADHU ISAAC, CHUNG FOSTER at 1414 CC: [id number] DICTATION DATE: 06/21/17 1145 GREEN CHAIN OPERATOR: 06/21/17 1200 ADM IN [id number] [place] [address]
--- NOTE | 2017-06-21 16:22 | NUR ---
EDUCATED PT ON SCDS. VERBALIZED UNDERSTANDING, BUT REFUSED TO WEAR THEM. PT IS UP AD RUBENS. TOLD PT TO LET ME KNOW IF HE CHANGED HIS MIND REGARDING WEARING THE SCDS.
--- NOTE | 2017-06-21 18:37 | NUR ---
RR EVEN AND UNLABORED, PTS HEART RATE 72. DENIES NEEDS AT THIS TIME. WILL GIVE REPORT ON PT CONDITION FOR THE DAY.
--- NOTE | 2017-06-21 20:36 | NUR ---
RESTING IN BED WITH EYES OPEN. PLEASANT AND TALKATIVE. REQUESTING COFFEE. HOB ELEVATED. CALL LIGHT AND OVERBED TABLE IN REACH.
[2017-06-22] VITALS: BP 139/83
[2017-06-22 03:47] LABS: BASOPHILS 0 % (0-2); EOSINOPHILS 0 % (0-7); HEMATOCRIT 32.4 % (42.0-54.0); HEMOGLOBIN 10.4 g/dL (13.5-17.5); IMMATURE GRANULOCYTES 0.2 % (0-5); LYMPHOCYTES 8.1 % (15-50); MCH 28.6 pg (26.0-34.0); MCHC 32.1 g/dL (31.0-37.0); MEAN PLATELET VOLUME 10.4 fL (7.4-10.4); MONOCYTES 5.3 % (2-11); NEUTROPHILS 86.4 % (40-80); PLATELET COUNT 225 10x3/uL (130-400); RBC 3.64 10x6/uL (4.20-6.10); RDW 16.6 % (11.5-14.5)
[2017-06-22 03:49] LABS: WBC 10.1 10x3/uL (4.8-10.8)
[2017-06-22 04:00] VITALS: BP 152/98
[2017-06-22 04:04] LABS: ALBUMIN 2.4 g/dL (3.4-5.0); ALKALINE PHOSPHATASE 56 U/L (46-116); BILIRUBIN - TOTAL 0.36 mg/dL (0.2-1.3); CALCIUM 8.1 mg/dL (8.5-10.1); CARBON DIOXIDE 27.9 mmol/L (21.0-32.0); CHLORIDE - SERUM 103 mmol/L (98-107); CREATININE - SERUM 0.8 mg/dL (0.6-1.3); MAGNESIUM - SERUM 2.1 mg/dL (1.8-2.4); PHOSPHOROUS 3.3 mg/dL (2.5-4.9); POTASSIUM - SERUM 4.7 mmol/L (3.5-5.1); PROTEIN - SERUM 5.3 g/dL (6.4-8.2); SODIUM 138 mmol/L (136-145); eGFR NON AFRICAN AMERICAN > 90 mL/min (90-120)
[2017-06-22 04:17] LABS: ALT (SGPT) 58 U/L (10-68); CALC OSMOLALITY 286 mosm/kg (275-300); GLUCOSE 221 mg/dL (74-106); UREA NITROGEN 24 mg/dL (7-18)
[2017-06-22 07:48] VITALS: BP 154/92
--- NOTE | 2017-06-22 08:07 | NUR ---
AM ROUNDS - PT IS IN BED AND AWAKE AT THIS TIME. O2 AT 2L VIA NC. MONITOR SHOWING SR, HR 72. PT IS EP, LAB WNL. LEFT CHEST INFUSAPORT, SL. BED AT LOWEST POSITION. CALL ROSA IN USE/REACH. SIDE RAILS UP X2. NO NEEDS AT THIS TIME. WILL CONTINEU TO MONITOR
[2017-06-22 12:03] VITALS: BP 175/76
[2017-06-22 16:24] VITALS: BP 148/98
--- NOTE | 2017-06-22 19:26 | NUR ---
PT IN ROOM VISITING WITH . NS INFUSING AT 10ML TO LEFT CHEST INFUSPORT. CYNTHIAG CDI. PT AAO. DENIES ANY NEEDS AT THIS TIME. NO S/S OF DISTRESS. WILL CPOC
[2017-06-22 20:00] VITALS: BP 133/88
--- NOTE | 2017-06-22 21:02 | NUR ---
NIGHT MEDS GIVEN. PT ONLY ASKS FOR AN ICE CREAM. PT DENIES ANY OTHER NEEDS. NO S/S OF DISTRESS. WILL CPOC
[2017-06-23 01:15] VITALS: BP 141/82
--- NOTE | 2017-06-23 04:20 | NUR ---
PT ASLEEP. RESPIRATIONS EVEN AND UNLABORED. SHAE CPOC
[2017-06-23 05:19] VITALS: BP 144/76
[2017-06-23 06:30] LABS: BASOPHILS 0 % (0-2); EOSINOPHILS 0 % (0-7); HEMATOCRIT 32.9 % (42.0-54.0); HEMOGLOBIN 10.4 g/dL (13.5-17.5); IMMATURE GRANULOCYTES 0.1 % (0-5); LYMPHOCYTES 5.9 % (15-50); MCH 28.2 pg (26.0-34.0); MCHC 31.6 g/dL (31.0-37.0); MCV 89.2 fL (80.0-100.0); MEAN PLATELET VOLUME 11.1 fL (7.4-10.4); MONOCYTES 4.9 % (2-11); NEUTROPHILS 89.1 % (40-80); PLATELET COUNT 228 10x3/uL (130-400); RBC 3.69 10x6/uL (4.20-6.10); RDW 16.5 % (11.5-14.5); WBC 9.6 10x3/uL (4.8-10.8)
[2017-06-23 06:50] LABS: ALBUMIN 2.4 g/dL (3.4-5.0); ALKALINE PHOSPHATASE 56 U/L (46-116); ALT (SGPT) 57 U/L (10-68); BILIRUBIN - TOTAL 0.29 mg/dL (0.2-1.3); CALC OSMOLALITY 296 mosm/kg (275-300); CALCIUM 7.8 mg/dL (8.5-10.1); CARBON DIOXIDE 32.2 mmol/L (21.0-32.0); CHLORIDE - SERUM 105 mmol/L (98-107); CREATININE - SERUM 0.8 mg/dL (0.6-1.3); GLUCOSE 259 mg/dL (74-106); PROTEIN - SERUM 5.2 g/dL (6.4-8.2); SODIUM 142 mmol/L (136-145); UREA NITROGEN 26 mg/dL (7-18); eGFR NON AFRICAN AMERICAN > 90 mL/min (90-120)
[2017-06-23 07:42] VITALS: BP 157/91
--- NOTE | 2017-06-23 08:17 | NUR ---
AM ROUNDS - PT IN BED AND APPEARS TO BE SLEEPING AT THIS TIME WITH EQUAL AND NON LABORED BREATHING. PT ON 2L VIA NC. LEFT CHEST POST, SL. PT IS A&O. BED AT LOWEST POSITION. CALL ROSA IN USE/REACH. SIDE RAILS UP X2
[2017-06-23 11:37] VITALS: BP 142/97
[2017-06-23] MEDS ORDERED: BETAPACE 120 M120 MG PO (13:34)
[2017-06-23] MEDS ORDERED: ASPIRIN81 MG PO (13:35)
[2017-06-23] MEDS ORDERED: PREDNISONE10 MG PO (13:40)
--- NOTE | 2017-06-23 15:58 | NUR ---
DR. HERNÁNDEZ ON UNIT. VERBAL ORDERS RECEIVED TO HEP-LOCK PTS INFUAS PORT.
--- NOTE | 2017-06-23 16:02 | NUR ---
d/c - WRITTEN AND VERBAL D/C INSTRUCTIONS GIVEN TO PT AND . D/C ILEFT CHEST INFUSAPORT. FLUSHED WITH 3CC OF HEPRIN, 2X2 DRESSING APPLIED AND SECURED WITH TAPE. PT LEFT FLOOR VIA WHEELCHAIR WITH ZIPPER CUTTER. WILL D/C
--- NOTE | 2017-06-26 12:35 | EC ---
PATIENT:MADHU ISAAC DATE OF SERVICE: 06/20/17 SEX: M MEDICAL RECORD: [id number] DATE OF : 42 LOCATION:D.M2 D.210 AGE OF PATIENT: 76 ADMISSION DATE: 06/20/17 REFERRING PHYSICIAN: INTERPRETING PHYSICIAN: CHUNG GONZALEZ MD ECHOCARDIOGRAM REPORT ECHO CHARGES 5 ECHO LIMITED CLINICAL DIAGNOSIS: AFIB HX AF/ABLASIONS/CAD/STENTS ECHOCARDIOGRAPHIC MEASUREMENTS (adult normal given) AC root (d.<3.7cm) 2.1 cm LV Septum d (<1.2 cm> 1.0 cm Valve Excursion 0.80 cm LV Septum (systole) 1.4 cm Left Atria (s.<4.0cm> 4.9 cm LVPW d(<1.2cm) 1.6 cm RV (d.<2.3cm) 3.2 cm LVPW (sytole) 1.7 cm LV diastole(<5.6CM) 5.4 cm MV E-F(>70mm/sec) cm LV systole 4.7 cm LVOT Diameter cm MV exc.(>10mm) cm Est.ejection fraction (50-75%) % Pericardial Effusion N DOPPLER: LVIT cm/sec A cm/sec E cm/sec LA cm/sec RVSP 29 mmHg LVOT cm/sec AOP1/2T m/s Asc. Ao cm/sec RVOT cm/sec RA cm/sec PA cm/sec AV Gradient Peak mmHg AV Mean mmHg AV Area cm MV Gradient Peak mmHg MV Mean mmHg MV Area cm COMMENTS: Car Body Inspector: Eric THIBODEAUX Keypunch Operators Supervisor: 1 Dr. Gonzalez TAPE# PACS DATE OF SERVICE: 06/21/2017 ECHOCARDIOGRAM DATE OF SERVICE: 06/21/2017 FINDINGS: 1. Left ventricular chamber size is within normal limits. Left ventricular systolic function is markedly depressed. Overall ejection fraction is 20%. 2. Left atrium is enlarged at 4.9 cm. Right atrium and right ventricular ECHOCARDIOGRAM REPORT [id number] MADHU ISAAC chamber sizes are mildly dilated. 3. Valvular structures have normal structure and motion. 4. Doppler interrogation reveals mild mitral regurgitation, mild tricuspid regurgitation, no other valvular insufficiency or stenosis. Pulmonary systolic pressure is estimated at 29 mmHg. 5. No evidence of pericardial effusion or left ventricular thrombus. TRANSINT:[id number] Voice Confirmation ID: [id number] DOCUMENT ID: [id number] CHUNG GONZALEZ MD at 1235 CC: [id number] DICTATION DATE: 06/21/17 170 PAPER TUBE GRADER: 06/21/17 183 DIS IN 06/23/17 [facility] [address] [id number]
== END 2017-06-23 17:06 | disposition home or self-care (01) | DRG 291 ==
LOC: D.ER 13:43 → D.M2 17:58
PROVIDERS: Family Medicine; ADMIT Emergency Medicine
DX: I11.0 Hypertensive heart disease with heart failure (principal); J96.21 Acute and chronic respiratory failure with hypoxia; J44.1 Chronic obstructive pulmonary disease with (acute) exacerbation; I48.92 Unspecified atrial flutter; J98.11 Atelectasis; I50.23 Acute on chronic systolic (congestive) heart failure; I48.0 Paroxysmal atrial fibrillation; Z79.01 Long term (current) use of anticoagulants; E78.5 Hyperlipidemia, unspecified; M06.9 Rheumatoid arthritis, unspecified; K21.9 Gastro-esophageal reflux disease without esophagitis; Z99.81 Dependence on supplemental oxygen; J30.9 Allergic rhinitis, unspecified; I08.1 Rheumatic disorders of both mitral and tricuspid valves; I27.20 Pulmonary hypertension, unspecified; D64.9 Anemia, unspecified; I25.10 Atherosclerotic heart disease of native coronary artery without angina pectoris; Z86.73 Personal history of transient ischemic attack (TIA), and cerebral infarction without residual deficits; Z86.711 Personal history of pulmonary embolism; Z86.718 Personal history of other venous thrombosis and embolism; Z85.46 Personal history of malignant neoplasm of prostate; Z85.118 Personal history of other malignant neoplasm of bronchus and lung

== ENCOUNTER 2017-07-04 04:19 | Emergency (ER) | payer MEDICARE, BC ==
[2017-06-21 12:28] VITALS: BMI 21.5
[~2017-07-04 04:19] MED LIST changes: +ASPIRIN81 MG PO; +BETAPACE 120 M120 MG PO
[2017-07-04 05:19] LABS: BASOPHILS 0.1 % (0-2); EOSINOPHILS 0.1 % (0-7); HEMATOCRIT 37.8 % (42.0-54.0); IMMATURE GRANULOCYTES 0.3 % (0-5); LYMPHOCYTES 11.4 % (15-50); MCH 28.6 pg (26.0-34.0); MCHC 31.7 g/dL (31.0-37.0); MEAN PLATELET VOLUME 10.6 fL (7.4-10.4); MONOCYTES 4.5 % (2-11); NEUTROPHILS 83.6 % (40-80); PLATELET COUNT 199 10x3/uL (130-400); WBC 18.4 10x3/uL (4.8-10.8)
[2017-07-04 05:35] LABS: ALBUMIN 2.6 g/dL (3.4-5.0); ALKALINE PHOSPHATASE 66 U/L (46-116); ALT (SGPT) 31 U/L (10-68); CALC OSMOLALITY 279 mosm/kg (275-300); CALCIUM 8.6 mg/dL (8.5-10.1); CARBON DIOXIDE 33.5 mmol/L (21.0-32.0); CHLORIDE - SERUM 98 mmol/L (98-107); CREATININE - SERUM 0.7 mg/dL (0.6-1.3); GLUCOSE 232 mg/dL (74-106); POTASSIUM - SERUM 3.8 mmol/L (3.5-5.1); PROTEIN - SERUM 5.5 g/dL (6.4-8.2); SODIUM 136 mmol/L (136-145); UREA NITROGEN 14 mg/dL (7-18); eGFR NON AFRICAN AMERICAN > 90 mL/min (90-120)
[2017-07-04 05:53] LABS: PRO BNP 18973 pg/mL (0-450)
[2017-07-04 05:55] LABS: TROPONIN-I 0.119 ng/mL (0.000-0.060)
== END 2017-07-04 06:08 | disposition home or self-care (01) ==
LOC: D.ER 04:19
PROVIDERS: Family Medicine
DX: J44.1 Chronic obstructive pulmonary disease with (acute) exacerbation (principal); R79.89 Other specified abnormal findings of blood chemistry; I10 Essential (primary) hypertension; Z85.118 Personal history of other malignant neoplasm of bronchus and lung; I45.10 Unspecified right bundle-branch block; I44.4 Left anterior fascicular block

== ENCOUNTER 2017-07-07 14:14 | Inpatient (IN) | payer MEDICARE, BC ==
[~2017-07-07] VITALS: Ht 177.8 cm; Wt 60.6 kg
[2017-07-07 16:01] LABS: BASOPHILS 0.1 % (0-2); EOSINOPHILS 0.2 % (0-7); HEMATOCRIT 40.4 % (42.0-54.0); HEMOGLOBIN 12.3 g/dL (13.5-17.5); IMMATURE GRANULOCYTES 0.4 % (0-5); LYMPHOCYTES 14.8 % (15-50); MCH 28.7 pg (26.0-34.0); MCHC 30.4 g/dL (31.0-37.0); MCV 94.4 fL (80.0-100.0); MEAN PLATELET VOLUME 11.1 fL (7.4-10.4); MONOCYTES 5.6 % (2-11); NEUTROPHILS 78.9 % (40-80); PLATELET COUNT 197 10x3/uL (130-400); RBC 4.28 10x6/uL (4.20-6.10); RDW 15.3 % (11.5-14.5); WBC 10.3 10x3/uL (4.8-10.8)
[2017-07-07 16:13] LABS: ALBUMIN 2.3 g/dL (3.4-5.0); ALKALINE PHOSPHATASE 72 U/L (46-116); ALT (SGPT) 62 U/L (10-68); BILIRUBIN - TOTAL 0.59 mg/dL (0.2-1.3); CALC OSMOLALITY 286 mosm/kg (275-300); CALCIUM 8.4 mg/dL (8.5-10.1); CARBON DIOXIDE 32.3 mmol/L (21.0-32.0); CHLORIDE - SERUM 97 mmol/L (98-107); CREATININE - SERUM 0.9 mg/dL (0.6-1.3); POTASSIUM - SERUM 3.7 mmol/L (3.5-5.1); PROTEIN - SERUM 5.6 g/dL (6.4-8.2); SODIUM 136 mmol/L (136-145); UREA NITROGEN 21 mg/dL (7-18); eGFR NON AFRICAN AMERICAN 87 mL/min (90-120)
[2017-07-07 16:14] LABS: GLUCOSE 314 mg/dL (74-106)
[2017-07-07 16:23] LABS: PRO BNP 10298 pg/mL (0-450)
[2017-07-07 16:36] LABS: CKMB 1.8 U/L (0.0-3.6); CREATINE KINASE 41 UL (21-232); TROPONIN-I 0.058 ng/mL (0.000-0.060)
--- NOTE | 2017-07-07 20:47 | NUR ---
REPORT RECEIVED FROM AVA DIAZ.
--- NOTE | 2017-07-07 21:01 | NUR ---
ARRIVED TO FLOOR VIA WHEELCHAIR, ACCOMPANIED BY HOSPITAL STAFF. ORIENTED TO UNIT. CALL LIGHT IN REACH. WILL CONTINUE TO MONITOR. SEE NURSE ASSESSMENT.
[2017-07-07 21:46] VITALS: BP 124/70
--- NOTE | 2017-07-07 23:31 | NUR ---
LYING IN BED WITH EYES CLOSED, CALL LIGHT IN REACH. WILL CONTINUE WITH PLAN OF CARE.
[2017-07-08] VITALS: BP 131/78
[2017-07-08 05:33] VITALS: BP 128/68
--- NOTE | 2017-07-08 06:05 | NUR ---
NO CHANGES FROM PREVIOUS ASSESSMENT, CALL LIGHT IN REACH. WILL CONTINUE TO MONITOR.
--- NOTE | 2017-07-08 07:23 | NUR ---
PATIENT IN BED RESTING WELL AT THIS TIME. OXYGEN AT 2L PER NASAL CANNULA. NO SIGNS OF DISTRESS OR DISCOMFORT ARE NOTED AT THIS TIME. CALL LIGHT AND WATER ARE WITHIN REACH .
[2017-07-08 08:52] VITALS: BP 135/74
--- NOTE | 2017-07-08 09:50 | NUR ---
RESTS IN BED WITH CALL LIGHT IN REACH. RESP UL ON . AT BS. WILL CONT. PLAN OF CARE.
[2017-07-08 12:39] VITALS: BP 120/76
[2017-07-08 13:08] VITALS: Ht 177.8 cm; Wt 60.6 kg
[2017-07-08 16:27] VITALS: BP 141/77
--- NOTE | 2017-07-08 17:46 | NUR ---
PATIENT IS IN BED WATCHING TELEVISION AT THIS TIME. TELEMETRY MONITORING INITIATED FOR THIS PATIENT THIS SHIFT. PATIENT INITIALLY ATRIAL FIB RATE BETWEEN 110-150 BPM. AFTER DIGOXIN (PATIENT HOME MEDICATION) GIVEN, PATIENT CONVERTED TO NORMAL SINUS RHYTHM WITH PAC'S AND A RATE OF 70-80 BPM. NO OTHER PROBLEMS ARE NOTED AT THIS TIME. CALL LIGHT AND WATER ARE WITHIN REACH.
[2017-07-08 21:22] VITALS: BP 121/74
--- NOTE | 2017-07-09 01:09 | NUR ---
NOTED NEW ORDER FOR ABT PER DR NIELSEN. CEFEPIME GIVEN SIVP AT THIS TIME. PT ALSO WILL HAVE A CONSULT WITH DR JACOBSEN FOR NOTED EPISODES OF ELEVATED HEARTRATE.
[2017-07-09 02:14] VITALS: BP 120/75
[2017-07-09 05:55] VITALS: BP 135/74
[2017-07-09 06:40] LABS: BASOPHILS 0.1 % (0-2); EOSINOPHILS 0.1 % (0-7); HEMATOCRIT 35.8 % (42.0-54.0); HEMOGLOBIN 11.7 g/dL (13.5-17.5); IMMATURE GRANULOCYTES 0.2 % (0-5); LYMPHOCYTES 17.7 % (15-50); MCH 28.4 pg (26.0-34.0); MCHC 32.7 g/dL (31.0-37.0); MEAN PLATELET VOLUME 10.3 fL (7.4-10.4); MONOCYTES 5.6 % (2-11); NEUTROPHILS 76.3 % (40-80); PLATELET COUNT 228 10x3/uL (130-400); RBC 4.12 10x6/uL (4.20-6.10); RDW 15.2 % (11.5-14.5)
[2017-07-09 06:43] LABS: MCV 86.9 fL (80.0-100.0); WBC 13.5 10x3/uL (4.8-10.8)
--- NOTE | 2017-07-09 07:00 | NUR ---
RECEIVED REPORT. ASSUMED CARE OF PATIENT. CALL LIGHT WITHIN REACH. RESTING IN BED WITH EYES CLOSED, EASILY AROUSED. NO DISTRESS.
[2017-07-09 07:06] LABS: ALBUMIN 2.2 g/dL (3.4-5.0); ALKALINE PHOSPHATASE 67 U/L (46-116); ALT (SGPT) 49 U/L (10-68); CALC OSMOLALITY 286 mosm/kg (275-300); CALCIUM 8.3 mg/dL (8.5-10.1); CARBON DIOXIDE 34.1 mmol/L (21.0-32.0); CHLORIDE - SERUM 101 mmol/L (98-107); CREATININE - SERUM 0.8 mg/dL (0.6-1.3); GLUCOSE 149 mg/dL (74-106); POTASSIUM - SERUM 3.3 mmol/L (3.5-5.1); PROTEIN - SERUM 5.3 g/dL (6.4-8.2); SODIUM 140 mmol/L (136-145); UREA NITROGEN 27 mg/dL (7-18); eGFR NON AFRICAN AMERICAN > 90 mL/min (90-120)
[2017-07-09 07:43] VITALS: BP 148/82
--- NOTE | 2017-07-09 09:40 | NUR ---
ELECTROLYTE PROTOCOL INITIATED. NO DISTRESS.
--- NOTE | 2017-07-09 11:28 | NUR ---
FSBS 309. 10 UNITS HUMALOG ADMINISTERED PER SLIDING SCALE AT THIS TIME. NO DISTRESS.
[2017-07-09 11:35] VITALS: BP 121/63
--- NOTE | 2017-07-09 16:48 | NUR ---
FSBS 152. 8 UNITS HUMALOG ADMINISTERED PER SLIDING SCALE. NO DISTRESS.
--- NOTE | 2017-07-09 17:15 | NUR ---
K+ LEVEL STILL REMAINS LOW, ELECTROLYTE PROTOCOL FOLLOWED AT THIS TIME AND 40MEQ X 1 ADMINISTERED. RECHECK LEVEL AT 2100
--- NOTE | 2017-07-09 19:29 | NUR ---
PT RESTING IN BED. 2L OF O2 NC. PT AAO X4. DENIES ANY NEEDS. NO S/S OF DISTRESS. BED LOW AND CALL LIGHT IN REACH. WILL CPOC
--- NOTE | 2017-07-09 21:10 | NUR ---
PT K+ IS NOW 4.6. NOW WNL. PT DENIES ANY NEEDS. WILL CPOC
[2017-07-09 21:50] VITALS: BP 132/75
--- NOTE | 2017-07-09 23:06 | NUR ---
PT RESTING IN BED WATCHING TV. DENIES ANY NEEDS. NO S/S OF DISTRESS. BEDLOW AND CALL LIGHT IN REACH. WILL CPOC
[2017-07-10 00:20] VITALS: BP 135/66
[2017-07-10 04:33] VITALS: BP 141/75
[2017-07-10 05:37] LABS: BASOPHILS 0 % (0-2); EOSINOPHILS 0 % (0-7); HEMATOCRIT 36.9 % (42.0-54.0); HEMOGLOBIN 11.8 g/dL (13.5-17.5); IMMATURE GRANULOCYTES 0.4 % (0-5); MCH 28.4 pg (26.0-34.0); MCV 88.7 fL (80.0-100.0); MEAN PLATELET VOLUME 10.9 fL (7.4-10.4); MONOCYTES 3.4 % (2-11); NEUTROPHILS 87.2 % (40-80); PLATELET COUNT 253 10x3/uL (130-400); RBC 4.16 10x6/uL (4.20-6.10); RDW 15.2 % (11.5-14.5); WBC 12.1 10x3/uL (4.8-10.8)
--- NOTE | 2017-07-10 06:02 | NUR ---
PT RESTING IN BED WATCHING TV. SPEAKS ABOUT HOPING TO GO HOME TODAY. PT DENIES ANY NEEDS. NO S/S OF DISTRESS. WILL CPOC
[2017-07-10 06:17] LABS: ALBUMIN 2.2 g/dL (3.4-5.0); ALKALINE PHOSPHATASE 82 U/L (46-116); ALT (SGPT) 50 U/L (10-68); CALC OSMOLALITY 291 mosm/kg (275-300); CALCIUM 8.7 mg/dL (8.5-10.1); CARBON DIOXIDE 31.8 mmol/L (21.0-32.0); CHLORIDE - SERUM 101 mmol/L (98-107); CREATININE - SERUM 0.9 mg/dL (0.6-1.3); POTASSIUM - SERUM 4.6 mmol/L (3.5-5.1); PROTEIN - SERUM 5.4 g/dL (6.4-8.2); SODIUM 139 mmol/L (136-145); UREA NITROGEN 32 mg/dL (7-18); eGFR NON AFRICAN AMERICAN 87 mL/min (90-120)
[2017-07-10 06:19] LABS: GLUCOSE 231 mg/dL (74-106)
[2017-07-10 07:18] LABS: APPEARANCE HAZY (CLEAR); BILIRUBIN NEGATIVE (NEGATIVE); COLOR YELLOW (YELLOW); GLUCOSE 50 mg/dL (NEGATIVE); KETONE NEGATIVE (NEGATIVE); NITRITE NEGATIVE (NEGATIVE); PROTEIN NEGATIVE (NEGATIVE); SPECIFIC GRAVITY 1.015 (1.005-1.020); UROBILINOGEN NORMAL (NORMAL)
[2017-07-10 07:20] LABS: BACTERIA MODERATE /hpf (NONE SEEN); EPITHELIAL CELLS 0-5 /hpf (0-5); MUCUS >1+ /lpf (NONE SEEN); RED CELLS - URINE 0-5 /hpf (0-5)
[2017-07-10 08:21] VITALS: BP 134/69
[2017-07-10 11:34] VITALS: BP 137/66
[2017-07-10] MEDS ORDERED: FUROSEMIDE20 MG PO (12:36)
[2017-07-10] MEDS ORDERED: PREDNISONE10 MG PO (12:37)
[2017-07-10] MEDS ORDERED: FLORAJEN3 CAPS460 MG PO (12:37)
[2017-07-10] MEDS ORDERED: DOXYCYCLINE HY100 M2 PO (14:32)
[2017-07-10] MEDS ORDERED: OMNICEF300 MG PO (14:32)
[2017-07-10] MEDS ORDERED: PULMICORT0.5 MG/21 UPD (14:32)
[2017-07-10] MEDS ORDERED: BROVANA15 MCG/2 M INH (14:32)
--- NOTE | 2017-07-10 16:15 | NUR ---
Patient Name: MADHU ISAAC Admission Status: ER Accout number: [id number] Admission Date: 07-07-2017 : 1940 Admission Diagnosis:SHORTNESS OF BREATH Attending: DENISE FERRERA Current LOS: 3 Anticipated DC Date: 07-10-2017 Planned Disposition: Home Primary Insurance: MEDICARE A & B Discharge Planning Comments: * Is the patient Alert and Oriented? Yes 0 * How many steps to enter\exit or inside your home? 3 0 * PCP DR. BULLOCK 0 * Pharmacy [facility] 0 * Preadmission Environment Home with Family 0 * ADLs Independent 0 * Equipment Cane Nebulizer Oxygen Walker 0 * Other Equipment [facility] - MEDICAL EQUIPMENT PROVIDER 0 * List name and contact numbers for known caregivers / representatives who currently or will assist patient after discharge: DINORAH ISAAC, SPOUSE, 0 * Community resources currently utilized Other 0 * Please name any agencies selected above. [facility] 0 * Additional services required to return to the preadmission environment? No 0 * Can the patient safely return to the preadmission environment? Yes 0 * Has this patient been hospitalized within the prior 30 days at any hospital? No 0 CM MET WITH PT IN ROOM TO DISCUSS DISCHARGE PLANNING AND NEEDS. PT REPORTS LIVING AT HOME INDEPENDENTLY WITH SPOUSE. PT HAS ALL NEEDED MEDICAL EQUIPMENT FROM [facility] AND NO OUTSIDE SERVICES ASSISTING IN THE HOME. CM DISCUSSED AVAILABILITY OF HOME HEALTH, REHAB SERVICES AND MEDICAL EQUIPMENT. PT DENIES DISCHARGE NEEDS, DENIES NEED OF HOME HEALTH, REPORTS HE IS NOT HOME CONFINED AND HAS HOUSECALLS ANYWAY. PT REPORTS HIS WILL PICK HIM UP FOR DISCHARGE HOME TODAY. IMPORTANT MESSAGE FROM MEDICARE PROVIDED AND EXPLAINED. PT CANNOT AFFORD THE OVER $500 FOR BROVANA AND BUDESEMIDE [facility], PT GETS SOME MEDICATIONS FROM MAIL ORDER. CM CALLED [facility], , SPOKE TO LISSETTE WHO REPORTS COPAY WITH MAIL ORDER WOULD BE CLOSE TO OR $0. CM NOTIFIED PT AND SPOUSE, PT ASKED FOR [facility] TO ORDER THE NEB MEDICATIONS. CM FAXED INFORMATION TO [facility] WHO WILL OBTAIN ORDER FROM DR. NIELSEN TO MAIL ORDER THE MEDICATIONS. PT DENIES FURTHER NEEDS. TENANT SELECTOR NURSE NOTIFIED. Chopper Gun Operator: Cayetano Pickering
--- NOTE | 2017-07-10 17:04 | NUR ---
DISCHARGE INSTRUCTIONS GIVEN TO PATIENT AND . TO CAR VIA
--- NOTE | 2017-07-12 14:08 | CN ---
PATIENT NAME:MADHU ISAAC MEDICAL RECORD: [id number] : 42 LOCATION:D. D.2124 ADMIT DATE: 07/07/17 ACCOUNT: [id number] CONSULTING PHYSICIAN: CHUNG JACOBSEN MD REFERRING PHYSICIAN: DENISE FERRERA MD DATE OF CONSULTATION: 07/09/2017 CARDIOLOGY CONSULTATION DATE OF SERVICE: 07/09/2017 DIAGNOSES: 1. Paroxysmal atrial fibrillation. 2. Chronic obstructive pulmonary disease. 3. Pneumonia. 4. Coronary artery disease. 5. Previous percutaneous transluminal coronary angioplasty stent. HISTORY OF PRESENT ILLNESS: This is a gentleman with a past history of atrial fibrillation with rapid ventricular response, who is admitted with COPD exacerbation and pneumonia. He had a similar admission last month. He was changed to sotalol and digoxin. He continues to have intermittent episodes of atrial fibrillation. His sotalol was at 120 mg b.i.d., his digoxin is 0.125 every day. Currently, he is in sinus rhythm at 60s. PHYSICAL EXAMINATION: GENERAL APPEARANCE: Well-nourished, well-developed, appears stated age. Level of distress, comfortable. PSYCHIATRIC: Mental status, alert, normal affect. Orientation, oriented to time, place and person. EYES: Lids and conjunctiva, noninjected. No discharge, no pallor. ENT: Lips, teeth, gums, normal dentition. Oropharynx, no cyanosis, no pallor. NECK: Carotid arteries, bilateral normal upstroke, no bruits, no thrills. JUGULAR VEINS: No jugular venous pressure or distention. CERVICAL LYMPH NODES: Nontender, nonenlarged. THYROID: Not enlarged. Nontender. No nodules. LUNGS: Respiratory effort, unlabored. CHEST: Normal curvature. No thoracic deformity. No chest wall tenderness. Percussion, resonant. Auscultation, clear. No wheezes, no rales, no rhonchi. CARDIOVASCULAR: Precordial exam, nondisplaced. No heaves or pericardial thrills. Rate and rhythm, regular. Heart sounds, normal S1, normal S2. No S3, no gallop, no rub. Systolic murmur, not heard. Diastolic murmur, not heard. EXTREMITIES: No cyanosis, no edema. Peripheral pulses, full and equal in all extremities, except as noted. No bruits appreciated. ABDOMEN: Soft, nondistended. Normal aorta. No bruit. Nontender. No masses. Liver, nontender, no hepatomegaly. Spleen, nontender, no splenomegaly. MUSCULOSKELETAL: No joint tenderness. No joint swelling. No erythema. NEUROLOGICAL: Normal gait, normal strength, normal tone. SKIN: Warm and dry. REVIEW OF SYSTEMS: The patient reports easy bruising but reports no swollen glands. The patient reports no fever, no night sweats, no significant weight gain, no significant weight loss. No significant exercise tolerance. The patient reports no dry eyes, no irritation, no vision change. Patient reports no difficulty hearing and no ear pain. Patient reports no frequent nose bleeds CONSULT REPORT [id number] MADHU ISAAC or nose and sinus problems. Patient reports on arm pain on exertion. No shortness of breath while lying down. No history of heart murmur. Patient reports no cough, no wheezing or coughing up blood. Patient reports no abdominal pain, no vomiting. Normal appetite. No diarrhea and not vomiting blood. No nausea and no constipation. Patient reports no incontinence. No difficulty urinating. No hematuria. No increased frequency. Patient reports no muscle aches. No weakness, no arthralgias, no back pain. No swelling of the extremities. Patient reports no abnormal mole, no jaundice, no rashes. Reports no loss of consciousness. No weakness and no numbness. No seizures, dizziness, or headaches. The patient reports no depression, no sleep disturbance, feeling safe in a relationship and no alcohol abuse. Patient reports on fatigue. Reports no runny nose or sinus pressure. No itching, no hives, and no frequent sneezing. OVERALL IMPRESSION: Paroxysmal atrial fibrillation. It would be very difficult to control him in sinus rhythm, any better than he has now due to his COPD, end-stage lung disease and active pneumonia. When he converts to sinus rhythm, he is bradycardia, hence would not increase the sotalol. Would continue the digoxin. No other cardiac workup or treatment is necessary at this time. He does have a history of bare-metal stenting over a month ago for which he was previously on Plavix. He was taken off at that time, but on Eliquis. He does not need the Plavix at this time, only Eliquis. TRANSINT:[id number] Voice Confirmation ID: [id number] DOCUMENT ID: [id number] CHUNG JACOBSEN MD at 1408 CC: [id number] DICTATION DATE: 07/09/17 0850 CLERK CHECKER: 07/09/17 1048 DIS IN 07/10/17 [id number] [place] [address]
== END 2017-07-10 17:07 | disposition home or self-care (01) | DRG 291 ==
LOC: D.ER 14:14 → D.M2 20:37
PROVIDERS: Emergency Medicine; Physician Assistant Medical; ADMIT Family Medicine
DX: I50.23 Acute on chronic systolic (congestive) heart failure (principal); J18.9 Pneumonia, unspecified organism; J96.01 Acute respiratory failure with hypoxia; J44.0 Chronic obstructive pulmonary disease with (acute) lower respiratory infection; J44.1 Chronic obstructive pulmonary disease with (acute) exacerbation; Z99.81 Dependence on supplemental oxygen; K21.9 Gastro-esophageal reflux disease without esophagitis; E11.65 Type 2 diabetes mellitus with hyperglycemia; D63.8 Anemia in other chronic diseases classified elsewhere; I08.1 Rheumatic disorders of both mitral and tricuspid valves; J40 Bronchitis, not specified as acute or chronic; Z79.01 Long term (current) use of anticoagulants; I27.20 Pulmonary hypertension, unspecified; M06.9 Rheumatoid arthritis, unspecified; I25.10 Atherosclerotic heart disease of native coronary artery without angina pectoris; Z86.718 Personal history of other venous thrombosis and embolism; Z86.73 Personal history of transient ischemic attack (TIA), and cerebral infarction without residual deficits; Z86.711 Personal history of pulmonary embolism; Z85.46 Personal history of malignant neoplasm of prostate; Z85.118 Personal history of other malignant neoplasm of bronchus and lung; Z95.1 Presence of aortocoronary bypass graft; Z87.891 Personal history of nicotine dependence